=== PATIENT | female | born 1955 | race Caucasian/White ===

== ENCOUNTER → 2018-01-24 07:24 | Outpatient (CLI) | payer BC, SELFPAY ==
--- NOTE | 2018-01-24 07:27 | HPBI_ITS ---
MAMMOGRAPHY - BILATERAL SCREENING REASON FOR EXAM: Female, 62 years old. Routine annual screening examination. PERTINENT HISTORY: Non-contributory. TECHNIQUE: Digital bilateral breast jayde (3D mammographic acquisition) in the CC and MLO projections. 2-D mediolateral oblique (MLO) and craniocaudad (CC) views of both breasts were obtained. CAD: Full Field Digital Mammography with Computer Added Detection was performed. COMPARISON: Comparison is made with prior study dated January 18, 2017 and January 12, 2016. FINDINGS: Breast Composition: There are scattered areas of fibroglandular density. There are no dominant masses or suspicious calcifications. No other significant abnormalities are identified. There has been no significant change since the prior study. HPBI/SCREENING MAMM (CAD), BILAT IMPRESSION: Stable bilateral screening mammogram. Yearly follow-up mammogram recommended. (A) ASSESSMENT CATEGORY: BIRADS Category 1: Negative. A letter regarding these results will be sent to the patient by the facility within 30 days. Approximately 10% of breast cancers are not detected by mammography. A normal mammogram should not delay biopsy of a clinically suspicious abnormality. [id number] Electronically Signed: Shaggy Triana MD at 9:57 EST Tel [phone], Service support ,
== END ==
PROVIDERS: Family Provider Family Medicine; PCP Family Medicine; Visit Provider Family Medicine
DX: Z12.31 Encounter for screening mammogram for malignant neoplasm of breast (principal)
CPT/HCPCS: 77063; 77067

== ENCOUNTER → 2018-10-08 16:17 | Outpatient (CLI) | payer BC, SELFPAY ==
--- NOTE | 2018-10-08 16:21 | RAD_ITS ---
HISTORY: left shoulder pain COMPARISON: None FINDINGS: 4 views. No fracture or acute disease. The left glenohumeral relationship appears normal. Left AC joint appears preserved. No soft tissue calcifications. RAD/Shoulder min 2 Views IMPRESSION: Negative exam. Left shoulder exam appears within normal limits for age. at 0108 Reported and signed by: Moi Harrison MD Electronically Signed: Moi Harrison, at 1:06 EST Tel , Service support ,
== END ==
PROVIDERS: Family Provider Family Medicine; PCP Family Medicine; Referring Provider Family Medicine; Visit Provider Family Medicine
DX: M25.512 Pain in left shoulder (principal)
CPT/HCPCS: 73030

== ENCOUNTER → 2021-03-05 08:01 | Outpatient (CLI) | payer MEDICARE, BC, SELFPAY ==
[2018-02-04 12:24] VITALS: BMI 39.8
[2021-03-05 10:47] LABS: Anion Gap 3 (5-15); BUN 18 mg/dL (7-18); Chloride 104 mmol/L (98-107); Cholesterol 217 mg/dL (200); Creatinine, Serum 0.95 mg/dL (0.55-1.02); EST Glomerular Filtration Rate 63 mL/min (>60); Est Glom Filt Rate - Afr Amer 76 mL/min (>60); Glucose 102 mg/dL (74-106); High Density Lipoprotein 44 mg/dL; Potassium 4.3 mmol/L (3.5-5.1); Sodium Level 136 mmol/L (136-145); Thyroid Stim Hormone (TSH) 0.36 uIU/mL (0.358-3.74); Triglycerides 160 mg/dL; Very Low Density Lipoprotein 32 mg/dL (5-40)
== END ==
PROVIDERS: PCP Family Medicine; Referring Provider Family Medicine; Visit Provider Family Medicine
DX: Z00.00 Encounter for general adult medical examination without abnormal findings (principal); E03.9 Hypothyroidism, unspecified; E55.9 Vitamin D deficiency, unspecified; E66.9 Obesity, unspecified
CPT/HCPCS: 36415; 80048; 80061; 84443

== ENCOUNTER → 2021-03-16 13:44 | Outpatient (CLI) | payer MEDICARE, BC, SELFPAY ==
[2021-03-19 12:38] LABS: HPV Reflexed? NOT INDICATED
== END ==
PROVIDERS: PCP Family Medicine; Visit Provider Registered Nurse
DX: Z01.419 Encounter for gynecological examination (general) (routine) without abnormal findings (principal)
CPT/HCPCS: 88175; G0145

== ENCOUNTER → 2021-04-19 11:59 | Outpatient (CLI) | payer MEDICARE, BC, SELFPAY ==
--- NOTE | 2021-04-19 12:03 | RAD_ITS ---
STUDY: X-RAY - LEFT KNEE REASON FOR EXAM: Left knee pain. TECHNIQUE: 4 view(s) of the knee. COMPARISON: None. FINDINGS: Normal visualized distal femur. Normal visualized proximal tibia and fibula. Normal proximal tibiofibular articulation. There is a small marginal osteophyte of the medial tibial plateau and mild joint space narrowing of the medial femorotibial compartment. Normal lateral femorotibial compartment. There is mild joint space narrowing of the patellofemoral articulation. The soft tissue structures are unremarkable. RAD/Knee 4 or More Views IMPRESSION: Mild arthrosis of the medial femorotibial and patellofemoral compartments. Electronically Signed: Elias Chapa MD at 12:40 EDT Tel , Service support ,
== END ==
PROVIDERS: PCP Family Medicine; Visit Provider Family Medicine
DX: M25.562 Pain in left knee (principal)
CPT/HCPCS: 73564

== ENCOUNTER 2021-08-04 23:52 | Inpatient (IN) | payer MEDICARE, BC, SELFPAY ==
[2021-08-04 23:53] VITALS: BP 186/114; PULSE 72; RESP 18; TEMP 36.7; O2SAT 98; BMI 41.0
[2021-08-04 23:58] VITALS: BP 169/105; PULSE 74; RESP 16; O2SAT 99
[2021-08-05] VITALS (25 sets, daily range): BP systolic 89–169; BP diastolic 75–105; PULSE 69–85; RESP 14–19; TEMP 36.6–36.9; O2SAT 97–100; BMI 40.7
--- NOTE | 2021-08-05 00:02 | EKG12_ITS ---
Test Reason : CP Blood Pressure : / mmHG Vent. Rate : 070 BPM Atrial Rate : 070 BPM P-R Int : 128 ms QRS Dur : 092 ms QT Int : 392 ms P-R-T Axes : 043 -19 -06 degrees QTc Int : 423 ms Normal sinus rhythm ST elevation consider anterolateral injury or acute infarct ACUTE MT / STEMI Abnormal ECG No previous ECGs available Confirmed by MARY SOOD, IRAJ ([id number]), story editor NASIR SINCLAIR ([id number]) on 08/10/2021 10:45:46 AM Referred By: Raul Lee Confirmed By:IRAJ HERNANDEZ MD
--- NOTE | 2021-08-05 00:02 | RAD_ITS ---
STUDY: X-RAY CHEST REASON FOR EXAM: Female, 66 years old. Chest pain TECHNIQUE: Portable, upright, AP chest radiograph COMPARISON: None. FINDINGS: The lungs are clear and expanded. There is no demonstrated pleural abnormality. Normal size heart. Normal mediastinum and tawana. Normal visualized pulmonary arteries. Normal visualized aortic arch and descending thoracic aorta. Normal visualized thoracic spine. Normal visualized ribs, clavicles, and shoulders. There is no demonstrated abnormality of the visualized soft tissue structures of the upper abdomen. RAD/Chest 1 View (Portable) IMPRESSION: No acute abnormal cardiopulmonary finding. Electronically Signed: Kris Grajeda MD at 1:00 EDT Tel , Service support ,
--- NOTE | 2021-08-05 00:04 | EDS_ITS ---
HPI History of Present Illness Chief Complaint: Chest Pain Informant: patient Onset/Context/Timing Onset: Today Activity at onset: sudden Narrative Narrative: Patient is a 66-year-old female with history of hypothyroid presenting with chest pain. Patient states she developed pain on her chest at 1120. She states it the most severe pain she is ever had and describes it as sharp and stabbing. It radiates to her arm and into her jaw. She does not have any associated nausea or shortness of breath. Patient took extra Tylenol but not had any aspirin today. She notes that over the past few days she has been having intermittent episodes of pain in her chest but they resolve after minutes. She denies any known cardiac history. She does have a family history of heart disease. She denies any other complaints at this time. [facility] Medical History (Updated 08/05/21 @ 00:[address] Shamika Baldwin DO) Hay fever Thyroid disease Home Medications fluticasone propionate 50 mcg/actuation nasal spray,suspension INTRANASAL 30 Days #16 02/04/18 [History Last Taken Unknown] levothyroxine 150 mcg tablet PO 90 Days #90 02/04/18 [History Last Taken Unknown] loratadine 10 mg tablet PO 30 Days #30 02/04/18 [History Last Taken Unknown] Allergy/AdvReac Type Severity Reaction Status Date / Time Penicillins Allergy Other Verified 08/04/21 23:58 celica Allergy Mild unknown Uncoded 02/04/18 12:25 Social History Smoking Status: Never smoker alcohol intake: never ROS ROS ED Constitutional Constitutional ED: Denies fatigue or weakness Eyes Eyes: Denies blurry vision ENT ENT ED: Denies rhinorrhea Cardiovascular Cardiovascular: Reports as per HPI and chest pain Respiratory/Chest Respiratory/Chest: Denies dyspnea Gastrointestinal Gastrointestinal: Denies abdominal pain, nausea or vomiting Genitourinary Genitourinary ED: Denies decreased urination or dysuria Musculoskeletal Musculoskeletal: Denies arthralgias, extremity pain or myalgias Integumentary Denies new lesions or rash Neurologic Neurologic: Denies paresthesias or weakness Psychiatric Psychiatric: Denies anxiety or depression Hematologic/Lymphatic Hematologic/Lymphatic: Denies easy bleeding or easy bruising EXAM Physical Exam Const Vital Signs: 08/04/21 23:53 08/04/21 23:56 08/04/21 23:58 Temperature 98.1 F Temperature Source Temporal Pulse Rate 72 Respiratory Rate 18 16 Respiratory Effort Normal Respiratory Pattern Normal Blood Pressure 186/114 H 169/105 H Blood Pressure Mean 138 Pulse Ox 98 Oxygen Delivery Method Room Air Oxygen Flow Rate (L/min) 08/05/21 00:12 08/05/21 00:14 Temperature Temperature Source Pulse Rate 76 Respiratory Rate Respiratory Effort Respiratory Pattern Blood Pressure 169/105 H Blood Pressure Mean Pulse Ox 100 Oxygen Delivery Method Nasal Cannula Oxygen Flow Rate (L/min) 2 HEENT Reports moist mucous membranes normocephalic Mouth ED: Yes moist mucous membranes normal Eyes PERRL and EOMs intact bilaterally General Eye ED: Yes normal appearance of both eyes Pupil: PERRL Neck supple and no JVD Lymph Lymphatic: no lymphadenopathy noted Chest Wall inspection of chest normal and palpation of chest normal Resp normal respiratory effort and normal air movement Cardio regular rate and regular rhythm Peripheral Pulses: pulses 2+ throughout GI normal to inspection, nondistended, normoactive bowel sounds, non-tender and non-distended Back/Spine no CVA tenderness and normal to inspection Extremity normal to inspection and full ROM Neuro oriented x3, moves all extremities and no focal motor deficits Psych mental status grossly normal and thought process normal Skin no rashes or lesions noted and no petechiae MDM MDM MDM Narrative Medical decision making narrative: Patient evaluated for acute onset of chest pain. EKG done upon arrival is consistent with ST elevation MN with ST elevations in leads I, aVL, V2 and V3 with reciprocal depressions in 2, 3 and aVF. STEMI alert is called. Patient is given Brilinta, aspirin, heparin and nitroglycerin. Discussed with STEMI crime scene evidence technician, Dr. Lee, who will evaluate the patient in the Telephone Service Adviser. Lab Data Labs: Laboratory Results - last 24 hr 08/05/21 00:04 WBC 11.4 H RBC 5.08 Hgb 14.5 Hct 43.1 MCV 84.8 MCH 28.5 MCHC 33.6 RDW Std Deviation 39.5 RDW Coeff of Khoi 12.8 Plt Count 316 MPV 9.1 Immature Gran % (Auto) 0.400 Neut % (Auto) 53.5 Lymph % (Auto) 35.7 [place] % (Auto) 7.7 Eos % (Auto) 2.2 Baso % (Auto) 0.5 Absolute Neuts (auto) 6.1 Absolute Lymphs (auto) 4.06 Nucleated RBC % 0 Critical Care Time Critical care time (excluding procedures): 30-74 minutes (36), Including time spent: (Frequent reevaluation. Blood pressure monitoring. Discussion with cardiology and arranging admission to the Telephone Service Adviser), Discussing w/Patient &/or Family/Laborer [employer], Discussing w/Consultants and Arranging Admission or Transfer Discharge Plan Dx/Rx/DC Orders Clinical Impression: ST elevation (STEMI) myocardial infarction, Hypertension, Chest pain Disposition Disposition: Acute Care Hospital [facility]
[2021-08-05] MEDS: TICAGRELOR 90 MG TABLET 180 MG PO (00:06)
[2021-08-05] MEDS: Aspirin 81 MG TAB.CHEW 324 MG PO (00:06)
--- NOTE | 2021-08-05 00:06 | ED.RN ---
NO OLD EKGS
[2021-08-05 00:09] LABS: Absolute Lymphocyte Count 4.06 X10^3/uL (0.83-4.51); Absolute Neutrophil Count 6.1 X10^3/uL (2.0-7.7); Basophil# 0.06 X10^3/uL; Basophil% 0.5 % (0-1); Eosinophil# 0.25 X10^3/uL; Eosinophils% 2.2 % (0-5); Hematocrit 43.1 % (37-47); Hemoglobin 14.5 g/dL (12.0-15.0); Lymphocyte # 4.06 X10^3/ul (0.83-4.51); Lymphocyte % 35.7 % (19-41); Mean Corp Hgb Conc 33.6 g/dL (32-36); Mean Corpuscular Hgb 28.5 pg (27.0-32.0); Mean Corpuscular Volume 84.8 fL (81-99); Mean Platelet Vol. 9.1 fl (6.2-12.0); Monocyte# 0.88 X10^3/uL; Monocyte% 7.7 % (0-10); NRBC Flagged by Analyzer 0 % (0-5); Neutrophil # 6.08 X10^3/uL (2.7-7.7); Neutrophil % 53.5 % (47-70); Platelet Count 316 K/mm3 (150-450); RBC Distribution Width CV 12.8 % (11.6-14.6); RBC Distribution Width SD 39.5 fl (35.1-43.9); Red Blood Count 5.08 M/mm3 (4.2-5.4); White Blood Count 11.4 K/mm3 (4.4-11.0)
[2021-08-05] MEDS: 0.9% Normal Saline 1,000 ML 150 ML IV ×3 (00:11→06:16)
[2021-08-05] MEDS: Nitroglycerin SL (ED/IMG/CATH) 0.4 MG TABLET SL ×2 (00:14→00:25)
[2021-08-05] MEDS: Heparin Injection (Vial) 5,000 UNIT/ML VIAL 4000 UNIT IV (00:14)
[2021-08-05 00:29] LABS: Anion Gap 5 (5-15); BUN 18 mg/dL (7-18); BUN/Creat Ratio 18.1 RATIO (10-20); Chloride 107 mmol/L (98-107); Creatinine, Serum 0.99 mg/dL (0.55-1.02); EST Glomerular Filtration Rate 60 mL/min (>60); Est Glom Filt Rate - Afr Amer 72 mL/min (>60); Estimated Creatinine Clearance 48.92 ml/min; Glucose 137 mg/dL (74-106); Potassium 4.1 mmol/L (3.5-5.1); Sodium Level 139 mmol/L (136-145); Troponin-I HS 106 pg/mL (3.0-54.0)
[2021-08-05 00:29] LABS: Prothrombin Time (Protime)PT. 12.7 SECONDS (11.7-14.9)
[2021-08-05 00:30] LABS: Partial Thromboplast Time 29.8 Seconds (24.1-36.2)
--- NOTE | 2021-08-05 01:31 | EKG12_ITS ---
Test Reason : POST CATH Blood Pressure : / mmHG Vent. Rate : 080 BPM Atrial Rate : 080 BPM P-R Int : 128 ms QRS Dur : 088 ms QT Int : 408 ms P-R-T Axes : 048 -29 041 degrees QTc Int : 470 ms Normal sinus rhythm Septal infarct , age undetermined Abnormal ECG Confirmed by SVETLANA SOOD, FLOR ([id number]), social media editor NASIR SINCLAIR ([id number]) on 08/09/2021 1:13:15 PM Referred By: Raul Lee Confirmed By:FLOR MOTA MD
--- NOTE | 2021-08-05 01:44 | PCIREPORT_ITS ---
PCI Cardiac Cath Report PCI Report: Procedure performed; 1. Successful primary stenting of mid LAD/culprit lesion for STEMI/anterior with thrombus using drug-eluting stent/Orsiro 3 x 22 mm Initial PAPITO II flow postprocedure achieved PAPITO-3 flow in the LAD initially stenosis is 70% with thrombus in the mid LAD post procedure 0% Preprocedure diagnosis; 66-year-old patient who was brought into the hospital at [facility] ER complaining of retrosternal chest pain with significant change in the EKG ST elevation noted in the anterior with reciprocal change noted in the inferior leads The symptoms have been ongoing for at least 24-hour on and off retrosternal chest pain with radiation to the jaw and to the left arm Patient known to have history of hypothyroidism and noted in the ER to have high blood pressure but she denied any history of diabetes no history of hypertension no history of prior coronary artery disease. at bedside when I came to evaluate in the ER with ER physician and the medical team. Patient was given in the ER heparin 4000, Brilinta 180 mg and regular aspirin 2 accesses were obtained in the left and the right upper extremity and patient was a started nitroglycerin 5 mcg IV and her symptoms improved when she came in she had severe retrosternal chest pain described as 10 out of 10 with nitroglycerin infusion her symptoms improved to around 5-6 still having symptoms of chest pain. Consent; Risk and benefit of the procedure explained detail to patient she elected to proceed informed consent obtained. Diagnostic catheter and interventional equipment used 1. 5 Lebanese JL 4 2. 5 Lebanese pigtail catheter 3. 6 Lebanese JR 4 guide catheter 0.014 run-through extra floppy 180 cm straight wire Drug-eluting stent/Orsiro 3 x 22 mm placed in the mid LAD. Procedure in detail; Patient was brought to the emergency to the Conference Services Director we will proceed with the 6 Lebanese sheath/Terumo placed in the right radial artery, a cocktail of heparin, nitroglycerin and verapamil was given through the sheath Then we proceed with the guide catheter 6 Lebanese JR4 advanced ascending aorta cannulated left main, then will proceed with guidewire run-through wire across the lesion in his LAD then will proceed with primary stenting using 3 x 22 mm drug-eluting stent nitroglycerin was given intracoronary and significant improvement in the hemodynamic with resolution of ST elevation, idioventricular rhythm was noted secondary to reperfusion arrhythmia symptoms of chest pain resolved and patient is stable hemodynamically then will proceed with 5 Lebanese JR4 diagnostic catheter cannulated the right coronary artery is followed by a pigtail catheter placed in the mid ventricle and the ventriculogram obtained a 30 degree LYLE projection. Findings; Hemodynamics; Moderate LV systolic dysfunction ejection fraction in the range of around 40% with anteroapical hypokinesia There is no systolic gradient across aortic valve. There is no mitral regurgitation noted. Coronary angiography findings 1. Left main coronary artery Short bifurcating into LAD and the left circumflex, angiographically the left main is normal 2. Left anterior descending is a large vessel with a ruptured plaque and thrombus noted in the mid LAD at the site of the diagonal with a PAPITO II flow in the LAD, following PCI and stenting of mid LAD PAPITO-3 flow was achieved LAD is a large vessel reach all the way to the apex had to small diagonal branches and abundant septal branches 3. The left circumflex is large vessel there is obtuse marginals normal and the circumflex in the AV groove is within normal 4. Right coronary artery large dominant angiographically there are luminal irregularity in the proximal mid RCA the distal RCA had nonobstructive atherosclerosis of around 20% Conclusion; This patient presented with STEMI/ST elevation noted in the anterior leads with reciprocal change in the inferior the culprit being the mid LAD with a ruptured plaque and thrombus with successful PCI as explained and placement of drug- eluting stent/primary stenting with excellent result Patient has reduced LV systolic dysfunction her presentation is more than 24- hour as she had the symptoms more than 24-hour and has anteroapical hypokinesia with ejection fraction around 40%. We will evaluate by echocardiogram in the morning. Recommendation; 1. Patient is started on Integrilin was given a total of 6000 IU, of heparin with an ACT level of 208 additional 2000 units of heparin was given 2. Integrilin bolus followed by Integrilin infusion for 18-hour 3. Patient was given 180 mg of Brilinta and a regular aspirin in the Conference Services Director she will continue on DAPT 90 mg twice daily of Brilinta in addition to low-dose aspirin 81 mg 4. Patient will be on high-dose statin atorvastatin 40 mg daily 5. TESFAYE inhibitor in addition to beta-wang carvedilol 6. We will start on phase 1 cardiac rehab program 7. Patient will be admitted to the intensive care unit and will continue to have a series of cardiac biomarkers. Patient tolerated the procedure well with no complication in the Conference Services Director. Raul Lee MD,FAC,[facility]
[2021-08-05 02:20] LABS: Absolute Lymphocyte Count 2.33 X10^3/uL (0.83-4.51); Absolute Neutrophil Count 6.8 X10^3/uL (2.0-7.7); Basophil# 0.03 X10^3/uL; Basophil% 0.3 % (0-1); Eosinophil# 0.13 X10^3/uL; Eosinophils% 1.3 % (0-5); Hematocrit 41.8 % (37-47); Hemoglobin 13.7 g/dL (12.0-15.0); Lymphocyte # 2.33 X10^3/ul (0.83-4.51); Lymphocyte % 23.6 % (19-41); Mean Corp Hgb Conc 32.8 g/dL (32-36); Mean Corpuscular Hgb 28.4 pg (27.0-32.0); Mean Corpuscular Volume 86.7 fL (81-99); Mean Platelet Vol. 9.4 fl (6.2-12.0); Monocyte# 0.52 X10^3/uL; Monocyte% 5.3 % (0-10); NRBC Flagged by Analyzer 0 % (0-5); Platelet Count 274 K/mm3 (150-450); RBC Distribution Width CV 12.9 % (11.6-14.6); RBC Distribution Width SD 40.9 fl (35.1-43.9); Red Blood Count 4.82 M/mm3 (4.2-5.4); White Blood Count 9.9 K/mm3 (4.4-11.0)
[2021-08-05 03:02] LABS: Anion Gap 3 (5-15); BUN 17 mg/dL (7-18); BUN/Creat Ratio 17.4 RATIO (10-20); Calcium,Total 8.6 mg/dL (8.5-10.1); Chloride 105 mmol/L (98-107); Creatinine, Serum 0.98 mg/dL (0.55-1.02); EST Glomerular Filtration Rate 61 mL/min (>60); Est Glom Filt Rate - Afr Amer 74 mL/min (>60); Estimated Creatinine Clearance 49.42 ml/min; Glucose 139 mg/dL (74-106); Potassium 4.2 mmol/L (3.5-5.1); Sodium Level 136 mmol/L (136-145); Troponin-I HS 4069 pg/mL (3.0-54.0)
--- NOTE | 2021-08-05 03:22 | HP.PCM.HOS_ITS ---
HPI - General General Date of Admission: 08/05/21 HPI Narrative THERESA DICKENS, is a 66 F who presents to the hospital with intermittent chest pain for the last 24 hours. She states that the pain was sharp and stabbing and went to her left shoulder and upper jaw a little bit. She never had a pain like this before and did not have any shortness of breath or lightheadedness with it. She presented to the hospital was found to have a STEMI on EKG with a troponin of over 4000. She was taken to the Sign Language Interpreter where a drug-eluting stent was placed in the mid LAD. She states that she is now chest pain-free. [facility], [facility] Medical History (Updated 08/05/21 @ 02:12 by Alex Lockwood) Celiac disease (~2012) Hay fever Thyroid disease Home Medications fluticasone propionate 50 mcg/actuation nasal spray,suspension INTRANASAL 30 Days #16 02/04/18 [History Last Taken Unknown] levothyroxine 150 mcg tablet PO 90 Days #90 02/04/18 [History Last Taken Unknown] loratadine 10 mg tablet PO 30 Days #30 02/04/18 [History Last Taken Unknown] Allergy/AdvReac Type Severity Reaction Status Date / Time Penicillins Allergy Other Verified 08/04/21 23:58 celica Allergy Mild unknown Uncoded 02/04/18 12:25 Family History (Updated 08/05/21 @ 03:[address] Nate Joy MD) Other Heart disease Surgical History (Updated 08/05/21 @ 03:[address] Nate Joy MD) Status post tubal ligation Social History Smoking Status: Former smoker alcohol intake: never ROS Constitutional Constitutional: Denies chills, fatigue, fever(s) or malaise Eyes Eyes: Denies blurry vision ENT HEENT: Denies headache(s) or nasal discharge Cardiovascular Cardiovascular: Reports chest pain; Denies dyspnea on exertion or syncope Respiratory/Chest Respiratory/Chest: Denies cough, shortness of breath at rest or shortness of breath with exertion Gastrointestinal Gastrointestinal: Denies constipation, diarrhea, nausea or vomiting Genitourinary Genitourinary: Denies dysuria Neurologic Neurologic: Denies focal weakness, numbness or tremor(s) Psychiatric Psychiatric: Denies anxiety or depression Vital Signs Vital Signs Vital Signs: 08/04/21 23:53 08/04/21 23:56 08/04/21 23:58 Temperature 98.1 F Temperature Source Temporal Pulse Rate 72 Respiratory Rate 18 16 Respiratory Effort Normal Respiratory Pattern Normal Blood Pressure 186/114 H 169/105 H Blood Pressure Mean 138 Blood Pressure Source Blood Pressure Position Blood Pressure Location Pulse Ox 98 Oxygen Delivery Method Room Air Oxygen Flow Rate (L/min) 08/05/21 00:12 08/05/21 00:14 08/05/21 00:25 Temperature Temperature Source Pulse Rate 76 76 Respiratory Rate Respiratory Effort Respiratory Pattern Blood Pressure 169/105 H 149/96 H Blood Pressure Mean Blood Pressure Source Blood Pressure Position Blood Pressure Location Pulse Ox 100 Oxygen Delivery Method Nasal Cannula Oxygen Flow Rate (L/min) 2 08/05/21 00:29 08/05/21 00:32 08/05/21 00:34 Temperature 98.1 F Temperature Source Oral Pulse Rate 85 83 Respiratory Rate 16 15 Respiratory Effort Respiratory Pattern Blood Pressure 149/96 H 89/75 L 138/87 H Blood Pressure Mean 113 79 104 Blood Pressure Source Blood Pressure Position Blood Pressure Location Pulse Ox 100 97 Oxygen Delivery Method Nasal Cannula Nasal Cannula Oxygen Flow Rate (L/min) 2 2 08/05/21 01:58 08/05/21 03:09 Temperature Temperature Source Pulse Rate 74 Respiratory Rate 18 Respiratory Effort Respiratory Pattern Blood Pressure 106/85 H Blood Pressure Mean 92 Blood Pressure Source Monitor Blood Pressure Position Semi-Fowlers Blood Pressure Location Left Arm Pulse Ox 97 Oxygen Delivery Method Nasal Cannula Oxygen Flow Rate (L/min) 2 Weight Weight: 237 lb 3.478 oz Body Mass Index (BMI) 40.7 Physical Exam Const alert, oriented x3 and no apparent distress General Appearance: cooperative HEENT normocephalic and moist oral mucous membranes Eyes PERRL, EOMs intact bilaterally and conjunctivae normal Neck supple and no JVD Resp normal respiratory effort, no retractions, no use of accessory muscles and clear to auscultation bilaterally Auscultation: Negative for crackles, rales, rhonchi or wheezes Cardio regular rate, regular rhythm, S1 normal heart sound, S2 normal heart sound and no murmurs GI soft to palpation, non-tender and non-distended; Negative for hepatosplenomegaly Extremity no clubbing, cyanosis or edema Skin no rashes or lesions noted Neuro no focal motor deficits and no sensory deficits noted Psych affect normal Appearance: appropriate Results Lab / Micro Data Result Diagrams: 08/05/21 02:10 08/05/21 02:10 Labs: Laboratory Results - last 24 hr 08/05/21 00:04: WBC 11.4 H, RBC 5.08, Hgb 14.5, Hct 43.1, MCV 84.8, MCH 28.5, MCHC 33.6, RDW Std Deviation 39.5, RDW Coeff of Khoi 12.8, Plt Count 316, MPV 9.1, Immature Gran % (Auto) 0.400, Neut % (Auto) 53.5, Lymph % (Auto) 35.7, [place] % (Auto) 7.7, Eos % (Auto) 2.2, Baso % (Auto) 0.5, Absolute Neuts (auto) 6.1, Absolute Lymphs (auto) 4.06, Nucleated RBC % 0 08/05/21 00:04: Sodium 139, Potassium 4.1, Chloride 107, Carbon Dioxide 27.0, Anion Gap 5, BUN 18, Creatinine 0.99, Estim Creat Clear Calc 48.92, Est GFR (MDRD) Af Amer 72, Est GFR (MDRD) Non-Af 60, BUN/Creatinine Ratio 18.1, Glucose 137 H, Calcium 9.0, Troponin I High Sens 106 H 08/05/21 00:15: PT 12.7, INR 1.0, APTT 29.8 08/05/21 02:10: WBC 9.9, RBC 4.82, Hgb 13.7, Hct 41.8, MCV 86.7, MCH 28.4, MCHC 32.8, RDW Std Deviation 40.9, RDW Coeff of Khoi 12.9, Plt Count 274, MPV 9.4, Immature Gran % (Auto) 0.500, Neut % (Auto) 69.0, Lymph % (Auto) 23.6, [place] % (Auto) 5.3, Eos % (Auto) 1.3, Baso % (Auto) 0.3, Absolute Neuts (auto) 6.8, Absolute Lymphs (auto) 2.33, Nucleated RBC % 0 08/05/21 02:10: Sodium 136, Potassium 4.2, Chloride 105, Carbon Dioxide 28.0, Anion Gap 3 L, BUN 17, Creatinine 0.98, Estim Creat Clear Calc 49.42, Est GFR (MDRD) Af Amer 74, Est GFR (MDRD) Non-Af 61, BUN/Creatinine Ratio 17.4, Glucose 139 H, Calcium 8.6, Troponin I High Sens 4069 H* Micro: Microbiology 08/05/21 00:17 Interface Orders SARS-CoV-2 Antigen (Rapid) - Final Radiology Impression Chest X-Ray 08/05/21 00:02 IMPRESSION: No acute abnormal cardiopulmonary finding. Electronically Signed: Kris Grajeda MD at 1:00 EDT Tel , Service support , Assessment & Plan Assessment/Plan (1) ST elevation (STEMI) myocardial infarction: PLAN: 1. STEMI status post stent/HTN -She received stent to the mid LAD, discussed with her that she cannot be off of antiplatelets -Continue with aspirin and Brilinta -We will continue to monitor her blood pressure, just started on Coreg -Continue with Lipitor -Continue with lisinopril 2. Hypothyroidism -Stable -Can resume Synthroid once verified DVT: Ambulation Charges/Coding Visit Charges Inpatient E&M: 82273 Init Hosp L3
[2021-08-05] MEDS: Atorvastatin Calcium 40 MG Tablet PO ×2 (05:16→22:09)
--- NOTE | 2021-08-05 05:52 | ECHOD_ITS ---
Reason For Study: S/P SC Procedure This was a 2D Doppler, Color Flow transthoracic echocardiogram. Exam performed portable in ICU/CCU. Left Ventricle Normal left ventricle. The estimated ejection fraction is EF 45-50 %. Right Ventricle Normal right ventricle. Normal systolic function. Atria Normal left atrium. Normal right atrium. Mitral Valve The mitral valve is structurally normal. No prolapse or stenosis seen. No mitral valve insufficiency. Tricuspid Valve Normal tricuspid valve. No tricuspid valve insufficiency. Aortic Valve Normal aortic valve. Pulmonic Valve The pulmonic valve is not well visualized. Great Vessels Normal aortic root. Pericardium/Pleural No pericardial effusion. MMode/2D Measurements & Calculations LVIDd: 4.8 cm IVSd: 1.0 cm Ao root diam: 3.9 cm LVIDs: 3.2 cm LVPWd: 1.00 cm FS: 32.9 % LAV(MOD-bp): 43.7 ml LVAd ap4: 33.2 cm2 LVAd ap2: 27.2 cm2 LAV(MOD-bp) Indexed: 20.8 ml/m2 LVLd ap4: 8.5 cm LVLd ap2: 7.8 cm LAV(MOD-sp2): 40.5 ml EDV(MOD-sp4): 105.5 ml EDV(MOD-sp2): 78.0 ml LAV(MOD-sp4): 47.2 ml EDV(sp4-el): 109.7 ml EDV(sp2-el): 81.1 ml LVAs ap4: 19.5 cm2 LVAs ap2: 17.1 cm2 LVLs ap4: 6.8 cm LVLs ap2: 6.8 cm ESV(MOD-sp4): 45.9 ml ESV(MOD-sp2): 35.3 ml ESV(sp4-el): 47.6 ml ESV(sp2-el): 36.1 ml EF(MOD-sp4): 56.5 % EF(MOD-sp2): 54.7 % EF(sp4-el): 56.6 % SV(MOD-sp4): 59.6 ml SV(MOD-sp2): 42.6 ml SV(sp4-el): 62.1 ml LA dimension(2D): 3.9 cm LA A4 area: 16.8 cm2 RA A4 area: 13.0 cm2 Time Measurements MV dec time: 0.24 sec Doppler Measurements & Calculations MV E max fantasma: 79.0 cm/sec Lat Peak E' Fantasma: 4.8 cm/sec Med Peak E' Fantasma: 4.8 cm/sec MV A max fantasma: 101.2 cm/sec E/E' lat: 16.3 E/E' med: 16.3 MV E/A: 0.78 Ao V2 max: 153.8 cm/sec LV V1 max: 105.2 cm/sec PA V2 max: 113.5 cm/sec Ao max P.5 mmHg LV V1 max P.4 mmHg TR max fantasma: 261.8 cm/sec TR max P.4 mmHg ECHO/Echo Complete Interpretation Summary The estimated ejection fraction is EF 45-50 %. Distal septal and Apical Hypokinesia Grade # I Diastolic Dysfunction No prior echo to compare Ordering Physician: Raul Lee Referring Physician: FLOR CHAVIRA Performed By: Mare Hernandez, RDCS, RVT
--- NOTE | 2021-08-05 07:30 | CRPHASE1_ITS ---
Patient Communication PHII Cardiac Rehab Discussed with Patient:: Yes Guide to Cardiac Rehab Given to Patient:: Yes Cardiac Rehab Facility Choice List Given to Patient:: Yes Choice Program [facility] CR PHII:: Communication Given to CR Choice Program Other:: Communication Given to CR Train Clerk:: Raul Lee Sessions:: 36 sessions - 3 days/wk, 12 weeks Cardiac Rehabilitation Info Cardiac Rehabilitation Program Information: Cardiac Rehabilitation is important for patients like you who are recovering from a heart problem. Cardiac rehabilitation programs are recognized as integral to the continued care of the patient with coronary heart disease. The cardiac rehabilitation program is designed to optimize a patient's physical, psychological, and social functioning. Health career counselor work in cardiac rehabilitation programs and assist you with getting the treatments you need to get stronger and healthier - like exercise, healthy eating habits, and medications. Cardiac rehabilitation has been show to help people with heart problems live longer and have better life enjoyment than people who do not go to cardiac rehabilitation. Please contact the Cardiac Rehabilitation Program at [facility] at in two weeks if you have not heard from them.
--- NOTE | 2021-08-05 07:34 | CRPH1.INSTRU ---
General Education CAD and cardiac anatomy and function:: Patient communicates acknowledgment Explanation of diagnoses and procedures:: Patient communicates acknowledgment Sign/Symptoms of CT:: Patient communicates acknowledgment Antiplatelet therapy: Patient communicates acknowledgment Smoking Recommendations Include:: Previous smoker; encourage continued cessation Nicotine/Smoking Response Code:: Patient communicates acknowledgment Dyslipidemia Patient Dyslipidemia Risk Factors Are:: Total Cholesterol, Triglycerides, HDL, LDL Recommendations Include:: Lipid profile provided, Reviewed NCEP/ATP guidelines, Therapeutic Lifestyle Change dietary guidelines Dyslipidemia Response Code:: Patient communicates acknowledgment Overweight/Obesity Patient Overweight/Obesity Risk Factors Are:: Obesity - > or = 30 Recommendations Include:: Weight loss of 5-10%, Reduced calorie diet, Exercise 5-7 times/week Overweight/Obesity:: Patient communicates acknowledgment Hypertension Recommendations Include:: Maintain BP <130/85, DASH dietary guidelines, Decrease/maintain normal body weight, Moderation of ETOH Hypertension:: Patient communicates acknowledgment Diabetes Patient Diabetes Risk Factors Are:: No documented hx of diabetes Metabolic Syndrome Patient Metabolic Syndrome Risk Factors Are [3 of 5]:: Fasting blood sugar > 100 mg/dL, Waist circumference > 35 [female] or 40 [male], High triglyceride >150, Hypertension Recommendations Include:: Reinforce compliance to risk factor modifications, Encouraged follow-up with Primary Care Physician Metabolic Syndrome Response Code:: Patient communicates acknowledgment Sedentary Patient Sedentary Risk Factors Are:: Lack of regular exercise Recommendations Include:: Aerobic exercise 5-7 times/week for 20-30 minutes continuously, Benefits of regular exercise, Monitored Outpatient Cardiac Rehab Sedentary Response Code:: Patient communicates acknowledgment Stress Patient Stress Risk Factors Are:: Patient denies stress as a risk factor
--- NOTE | 2021-08-05 09:35 | CASEMGMT ---
RN CM Face to Face with patient for initial transition planning/care coordination assessment. RN CM introduced self and role at [facility]. Patient lying in bed, alert and oriented. Patient willing to participate in assessment and is able to answer all questions appropriately. Care providers, pharmacy, and demographics verified. Patient wishes to discharge home, denies need for home health at this time. Patient states she has no further needs or concerns at this time. CM to follow for discharge planning needs that may arise. PCP: [facility] Specialists: RENAE Lombardi Preferred Pharmacy: [facility] retail at discharge Insurance: [place] BARBER Prescription Benefit: yes Living Will/HPOA: yes, Raffi Ramos LNOK: Living Arrangements: Patient lives with in a single story home with 2 steps and railing to enter the home. Patient states she is independent at home. Transportation: self/ DME/HHC: Patient states she has shower chair, raised toilet, and grab bars at home. Patient denies previous HHC. Disposition Plan: Patient to discharge home with family support and follow-up plans in place. Nataliia CHILDS, RN, CM
[2021-08-05] MEDS: TICAGRELOR 90 MG TABLET PO ×2 (09:52→22:23)
[2021-08-05] MEDS: Loratadine 10 MG Tablet PO (09:52)
[2021-08-05] MEDS: Fluticasone 0.05% 1 SPRAY NASAL.SRY NASAL (09:52)
[2021-08-05] MEDS: Carvedilol 3.125 MG TABLET PO ×2 (09:52→22:23)
[2021-08-05] MEDS: Lisinopril 5 MG Tablet PO (09:53)
--- NOTE | 2021-08-05 10:52 | PN.HOSP_ITS ---
Hospitalist Note Mrs. Ramos is a 66-year-old female who presented to the emergency department early this morning with chest pain. She evidently developed chest pain at approximately 11:20 PM and reported that it was with the most severe pain she had ever had and described as sharp and stabbing. She reported that it radiated to her arm and into her jaw. She had no associated nausea or shortness of breath. She did indicate that over the past several days she has been having some intermittent pain in her chest but it resolved after a few minutes. Upon arrival to the emergency department an EKG was performed and was consistent with an ST elevation CT with ST elevations in lead I, aVL, V2 and V3 with reciprocal depressions in lead II, III and aVF. STEMI alert was called and the patient was given Brilinta, aspirin, heparin and nitroglycerin. The patient was taken to the catheter lab where a mid LAD lesion was found and stented with a drug- eluting stent. This morning she was resting comfortably in her bed and denied having any current pain. She states that while lying down she had little pain but when she sat up it was resolved. She is currently on aspirin, atorvastatin, carvedilol, lisinopril, and Brilinta. I will check a hemoglobin A1c in the morning as she did have an elevated fasting blood glucose level this morning. If she remains stable I do anticipate discharge tomorrow. Diagnoses: STEMI Hyperglycemia Hyperlipidemia Hypertension Hypothyroidism Seasonal allergies
--- NOTE | 2021-08-05 12:13 | CHAPLAIN ---
Type of Pastoral Visit _x__ Initial Visit ___ Follow-up Visit ___ On-call Visit ___ General Patient Visit ___ Spiritual Assessment ___ Family Conference ___ Bereavement ___ Rapid Response ___ Code Blue ___ Other (describe below) Pastoral Care Referral From _x__ Patient ___ Family ___ Nurse ___ Physician ___ Moving Worker ___ Medicaid Analyst ___ Other (describe below) Sacrament/Intervention _x__ Active listening ___ Anointing ___ Restorationist ___ Bereavement ___ Communion ___ [place] exploration ___ ___ Life review _x__ Prayer ___ Reconciliation ___ Sacrament of Sick ___ Supportive presence ___ Wedding ___ Other (describe below) Pastoral Comments patient is pleasant and expresses great appreciation for her care at hospital; pt speaks with positive attitude about future; patient welcomes the support of presence and prayer
--- NOTE | 2021-08-05 12:27 | PCM.CONS.C ---
Documented by User: SENA Sauceda 08/05/21 12:58 Assessment & Plan Assessment/Plan (1) ST elevation (STEMI) myocardial infarction: (2) Hypertension: (3) Decreased left ventricular systolic function: PLAN: Pt urgently had her LAD stented. She was started on Brilinita, ASA, Coreg, lisinopril and atrovastatin She will be referred to cardiac rehab she does have a decreased EF, will obtain echo today. She will continue with her Coreg and lisinopril. Will continue to monitor this on a Op basis. her lipids were not ideal, she will be started on Atorvastatin. HPI Consult Data Date of Consult: 08/05/21 HPI Narrative HPI Narrative: THERESA DICKENS, is a 66 F who presented to [facility] ER with a STEMI. Patient noted that her chest discomfort started at approximately 11:30 PM. She had severe sharp stabbing pain that radiated to her arm and into her jaw. She did not have any associated nausea or shortness of breath. Because this was the worst discomfort she has felt she decided to drive to the emergency room. Patient does note that she had symptoms on and off like this all day except this was the worst. Upon presentation she was noted to have an ST elevation myocardial infarction with ST elevation in leads I, aVL, V2 and V3 with reciprocal depressions in 2 3 and aVF patient was started on Brilinta, aspirin, heparin and glycerin. Patient urgently went to the Road Grader Operator. Heart catheterization demonstrated moderate LV systolic dysfunction with an ejection fraction of 40% with anteroapical hypokinesia, left main short bifurcating into the LAD and around to the circumflex angiographically normal. LAD is a large vessel with ruptured plaque and thrombus noted in the mid LAD at the site of the diagonal. PCI and stenting of the mid LAD was done. Patient was noted to have nonobstructive disease of the RCA. She does have a history of hypothyroid and celiac disease. [facility] Medical History Celiac disease (~2012) Hay fever Thyroid disease Home Medications fluticasone propionate 50 mcg/actuation nasal spray,suspension INTRANASAL 30 Days #16 02/04/18 [History Last Taken Unknown] levothyroxine 150 mcg tablet PO 90 Days #90 02/04/18 [History Last Taken Unknown] loratadine 10 mg tablet PO 30 Days #30 02/04/18 [History Last Taken Unknown] Allergy/AdvReac Type Severity Reaction Status Date / Time Penicillins Allergy Other Verified 08/04/21 23:58 celica Allergy Mild unknown Uncoded 02/04/18 12:25 Family History Other Heart disease Surgical History History of coronary artery stent placement (08/05/21) Status post tubal ligation Social History Smoking Status: Former smoker alcohol intake: never ROS Constitutional Constitutional: Reports systems reviewed and no addt'l complaints, except as documented Eyes Eyes: Reports systems reviewed and no addt'l complaints, except as documented ENT HEENT: Reports systems reviewed and no addt'l complaints, except as documented Cardiovascular Cardiovascular: Reports systems reviewed and no addt'l complaints, except as documented Respiratory/Chest Respiratory/Chest: Reports systems reviewed and no addt'l complaints, except as documented Gastrointestinal Gastrointestinal: Reports systems reviewed and no addt'l complaints, except as documented Musculoskeletal Musculoskeletal: Reports myalgias Neurologic Neurologic: Reports systems reviewed and no addt'l complaints, except as documented Physical Exam Const alert, oriented x3, no apparent distress, average body habitus, no limitations, healthy appearing and well nourished HEENT normocephalic, head/scalp atraumatic, hearing grossly normal bilaterally, moist oral mucous membranes and dentition normal Eyes PERRL, EOMs intact bilaterally, conjunctivae normal and no scleral icterus Neck full ROM, nuchal rigidity, no lymphadenopathy, supple and no JVD Chest inspection of chest normal Resp normal respiratory effort, normal air movement, no retractions, no use of accessory muscles and clear to auscultation bilaterally Cardio regular rate, regular rhythm, S1 normal heart sound, S2 normal heart sound, no murmurs, no rub, no gallops, no clicks, no JVD and peripheral pulses 2+ throughout GI normal to inspection, nondistended, normoactive bowel sounds, soft to palpation, non-tender and non-distended Extremity normal to inspection, normal capillary refill, no joint enlargement, no clubbing, cyanosis or edema and no pedal edema Neuro oriented x3, CN's II-XII intact bilaterally and moves all extremities Charges/Coding Visit Charges Office Visits / Consults: 18233 IP Consult L5 Objective Data Vital Signs: Vital Signs Temp Pulse Resp BP Pulse Ox 98.4 F 78 18 146/89 H 100 08/05/21 08:00 08/05/21 11:49 08/05/21 11:49 08/05/21 11:49 08/05/21 11:49 Oxygen Flow Rate (L/min) 2 Oxygen Delivery Method Room Air Weight: 237 lb 3.478 oz Body Mass Index (BMI) 40.7 Intake & Output: Intake and Output for Last 24 Hours 08/03/21 08/04/21 08/05/21 23:59 23:59 23:59 Intake Total 2388.31 / 2388.31 Output Total 2102 / 2102 Balance 286.31 / 286.31 Lab / Micro Data Result Diagrams: 08/05/21 02:10 08/05/21 02:10 Labs: Laboratory Results - last 24 hr 08/05/21 00:04: WBC 11.4 H, RBC 5.08, Hgb 14.5, Hct 43.1, MCV 84.8, MCH 28.5, MCHC 33.6, RDW Std Deviation 39.5, RDW Coeff of Khoi 12.8, Plt Count 316, MPV 9.1, Immature Gran % (Auto) 0.400, Neut % (Auto) 53.5, Lymph % (Auto) 35.7, Taliaferro % (Auto) 7.7, Eos % (Auto) 2.2, Baso % (Auto) 0.5, Absolute Neuts (auto) 6.1, Absolute Lymphs (auto) 4.06, Nucleated RBC % 0 08/05/21 00:04: Sodium 139, Potassium 4.1, Chloride 107, Carbon Dioxide 27.0, Anion Gap 5, BUN 18, Creatinine 0.99, Estim Creat Clear Calc 48.92, Est GFR (MDRD) Af Amer 72, Est GFR (MDRD) Non-Af 60, BUN/Creatinine Ratio 18.1, Glucose 137 H, Calcium 9.0, Troponin I High Sens 106 H 08/05/21 00:15: PT 12.7, INR 1.0, APTT 29.8 08/05/21 02:10: WBC 9.9, RBC 4.82, Hgb 13.7, Hct 41.8, MCV 86.7, MCH 28.4, MCHC 32.8, RDW Std Deviation 40.9, RDW Coeff of Khoi 12.9, Plt Count 274, MPV 9.4, Immature Gran % (Auto) 0.500, Neut % (Auto) 69.0, Lymph % (Auto) 23.6, Taliaferro % (Auto) 5.3, Eos % (Auto) 1.3, Baso % (Auto) 0.3, Absolute Neuts (auto) 6.8, Absolute Lymphs (auto) 2.33, Nucleated RBC % 0 08/05/21 02:10: Sodium 136, Potassium 4.2, Chloride 105, Carbon Dioxide 28.0, Anion Gap 3 L, BUN 17, Creatinine 0.98, Estim Creat Clear Calc 49.42, Est GFR (MDRD) Af Amer 74, Est GFR (MDRD) Non-Af 61, BUN/Creatinine Ratio 17.4, Glucose 139 H, Calcium 8.6, Troponin I High Sens 4069 H* 08/05/21 02:10: Sodium Cancelled, Potassium Cancelled, Chloride Cancelled, Carbon Dioxide Cancelled, Anion Gap Cancelled, BUN Cancelled, Creatinine Cancelled, Estim Creat Clear Calc Cancelled, Est GFR (MDRD) Af Amer Cancelled, Est GFR (MDRD) Non-Af Cancelled, BUN/Creatinine Ratio Cancelled, Glucose Cancelled, Calcium Cancelled Micro: Microbiology 08/05/21 00:17 Interface Orders SARS-CoV-2 Antigen (Rapid) - Final Cardiology Labs/Tests 08/05/21 00:04: WBC 11.4 H, RBC 5.08, Hgb 14.5, Hct 43.1, MCV 84.8, MCH 28.5, MCHC 33.6, Plt Count 316, MPV 9.1, Immature Gran % (Auto) 0.400, Neut % (Auto) 53.5, Lymph % (Auto) 35.7, Taliaferro % (Auto) 7.7, Eos % (Auto) 2.2, Baso % (Auto) 0.5, Absolute Neuts (auto) 6.1, Nucleated RBC % 0 08/05/21 00:04: Sodium 139, Potassium 4.1, Chloride 107, Carbon Dioxide 27.0, Anion Gap 5, BUN 18, Creatinine 0.99, Est GFR (MDRD) Af Amer 72, Est GFR (MDRD) Non-Af 60, BUN/Creatinine Ratio 18.1, Glucose 137 H, Calcium 9.0 08/05/21 00:15: PT 12.7, INR 1.0, APTT 29.8 08/05/21 02:10: WBC 9.9, RBC 4.82, Hgb 13.7, Hct 41.8, MCV 86.7, MCH 28.4, MCHC 32.8, Plt Count 274, MPV 9.4, Immature Gran % (Auto) 0.500, Neut % (Auto) 69.0, Lymph % (Auto) 23.6, Taliaferro % (Auto) 5.3, Eos % (Auto) 1.3, Baso % (Auto) 0.3, Absolute Neuts (auto) 6.8, Nucleated RBC % 0 08/05/21 02:10: Sodium 136, Potassium 4.2, Chloride 105, Carbon Dioxide 28.0, Anion Gap 3 L, BUN 17, Creatinine 0.98, Est GFR (MDRD) Af Amer 74, Est GFR (MDRD) Non-Af 61, BUN/Creatinine Ratio 17.4, Glucose 139 H, Calcium 8.6 08/05/21 02:10: Sodium Cancelled, Potassium Cancelled, Chloride Cancelled, Carbon Dioxide Cancelled, Anion Gap Cancelled, BUN Cancelled, Creatinine Cancelled, Est GFR (MDRD) Af Amer Cancelled, Est GFR (MDRD) Non-Af Cancelled, BUN/Creatinine Ratio Cancelled, Glucose Cancelled, Calcium Cancelled Rhythm: EKG: ECHO: Stress Test: Cardiac Cath with PCI 08/05/2021: Moderate LV systolic dysfunction ejection fraction in the range of around 40% with anteroapical hypokinesia There is no systolic gradient across aortic valve. There is no mitral regurgitation noted. Coronary angiography findings 1. Left main coronary artery Short bifurcating into LAD and the left circumflex, angiographically the left main is normal 2. Left anterior descending is a large vessel with a ruptured plaque and thrombus noted in the mid LAD at the site of the diagonal with a PAPITO II flow in the LAD, following PCI and stenting of mid LAD PAPITO-3 flow was achieved LAD is a large vessel reach all the way to the apex had to small diagonal branches and abundant septal branches 3. The left circumflex is large vessel there is obtuse marginals normal and the circumflex in the AV groove is within normal 4. Right coronary artery large dominant angiographically there are luminal irregularity in the proximal mid RCA the distal RCA had nonobstructive atherosclerosis of around 20% PCI: CT Surgery: Holter monitor: EPS: PPM: CXR: Chest CT Scan: Radiography Diagnostic Testing: Radiology Impression Chest X-Ray 08/05/21 00:02 IMPRESSION: No acute abnormal cardiopulmonary finding. Electronically Signed: Kris Grajeda MD at 1:00 EDT Tel , Service support , Documented by User: Dr. Raul Lee MD 08/05/21 14:04 Assessment & Plan Assessment/Plan (1) ST elevation (STEMI) myocardial infarction: (2) Hypertension: (3) Decreased left ventricular systolic function: PLAN: I review the evaluation in this patient including the EKG, current lab, telemetry and I reviewed the current cardiac care plan as documented by the midlevel Patient presented with symptoms of chest pain she had a history of hypertension and she had ST elevation myocardial infarction, with ruptured plaque a large thrombus involving the mid LAD underwent successful percutaneous core intervention with placement of drug-eluting stent to the mid LAD and achievement of excellent result her symptoms of chest pain resolved and ST segment normalized. She has moderate LV systolic dysfunction with anteroapical hypokinesia and her presentation is more than 24 hours symptoms of chest pain. I discussed the cardiac care plan and medication in detail with the patient and the nursing staff 1. Patient will continue on DAPT/Brilinta/aspirin for 1 year and low-dose aspirin indefinitely indefinitely 2. High-dose atorvastatin 40 mg daily 3. Lisinopril 5 mg due to the reduced LV systolic function 4. Beta-wang carvedilol 3.125 mg twice daily Echocardiogram will be performed to assess LV systolic function Patient will be transferred to the PCU from the intensive care unit and if she remains stable she can be discharged home tomorrow for follow-up with the cardiology team at [facility] for continuation of cardiac care plan. HPI Consult Data Date of Consult: 08/05/21 [facility] Medical History Celiac disease (~2012) Hay fever Thyroid disease Home Medications fluticasone propionate 50 mcg/actuation nasal spray,suspension INTRANASAL 30 Days #16 02/04/18 [History Last Taken Unknown] levothyroxine 150 mcg tablet PO 90 Days #90 02/04/18 [History Last Taken Unknown] loratadine 10 mg tablet PO 30 Days #30 02/04/18 [History Last Taken Unknown] Allergy/AdvReac Type Severity Reaction Status Date / Time Penicillins Allergy Other Verified 08/04/21 23:58 celica Allergy Mild unknown Uncoded 02/04/18 12:25 Family History Other Heart disease Surgical History History of coronary artery stent placement (08/05/21) Status post tubal ligation Social History Smoking Status: Former smoker alcohol intake: never Lab / Micro Data Result Diagrams: 08/05/21 02:10 08/05/21 02:10
[2021-08-05] MEDS: 0.9% Saline Lock 10 ML Syringe IV (22:10)
[2021-08-06] VITALS (7 sets, daily range): BP systolic 101–125; BP diastolic 68–72; PULSE 79–101; RESP 16–18; TEMP 36.7–37; O2SAT 97–98
[2021-08-06 04:34] LABS: Hematocrit 43.1 % (37-47); Hemoglobin 14.3 g/dL (12.0-15.0); Mean Corp Hgb Conc 33.2 g/dL (32-36); Mean Corpuscular Hgb 28.5 pg (27.0-32.0); Mean Corpuscular Volume 85.9 fL (81-99); Mean Platelet Vol. 9.2 fl (6.2-12.0); Platelet Count 303 K/mm3 (150-450); RBC Distribution Width CV 13.3 % (11.6-14.6); Red Blood Count 5.02 M/mm3 (4.2-5.4); White Blood Count 11.3 K/mm3 (4.4-11.0)
[2021-08-06 05:06] LABS: Anion Gap 7 (5-15); BUN 12 mg/dL (7-18); BUN/Creat Ratio 13.6 RATIO (10-20); Calcium,Total 8.6 mg/dL (8.5-10.1); Chloride 105 mmol/L (98-107); Creatinine, Serum 0.88 mg/dL (0.55-1.02); EST Glomerular Filtration Rate 68 mL/min (>60); Est Glom Filt Rate - Afr Amer 83 mL/min (>60); Estimated Creatinine Clearance 55.04 ml/min; Glucose 122 mg/dL (74-106); Potassium 4.4 mmol/L (3.5-5.1); Sodium Level 138 mmol/L (136-145)
[2021-08-06] MEDS: Levothyroxine 150 MCG Tablet PO (06:44)
[2021-08-06] MEDS: 0.9% Saline Lock 10 ML Syringe IV (06:44)
[2021-08-06 07:32] LABS: Hemoglobin A1c 5.9 % (3.8-5.6)
[2021-08-06] MEDS: Fluticasone 0.05% 1 SPRAY NASAL.SRY NASAL (08:13)
[2021-08-06] MEDS: Carvedilol 3.125 MG TABLET PO (08:14)
[2021-08-06] MEDS: TICAGRELOR 90 MG TABLET PO (08:14)
[2021-08-06] MEDS: Aspirin 81 MG TAB.CHEW PO (08:20)
[2021-08-06] MEDS: Lisinopril 5 MG Tablet PO (08:20)
[2021-08-06] MEDS: Loratadine 10 MG Tablet PO (08:20)
--- NOTE | 2021-08-06 10:04 | PCS.PANDOC ---
PANDEMIC DOCUMENTATION INITIATED: Date: 07/12/2021 Time: 190
--- NOTE | 2021-08-06 10:36 | PN.CARD_ITS ---
Documented by User: SENA Sauceda 08/06/21 13:08 Subjective Subjective Overall pt does not have any complaints. No concerns over the evening. Pt has not complaints of chest pain/heaviness/tightness. She does not have any SOB. Objective Data Vital Signs: Vital Signs Temp Pulse Resp BP Pulse Ox 98.2 F 101 H 18 116/72 97 08/06/21 07:54 08/06/21 08:23 08/06/21 07:54 08/06/21 07:54 08/06/21 07:54 Oxygen Flow Rate (L/min) 2 Oxygen Delivery Method Room Air Weight: 236 lb 15.951 oz Body Mass Index (BMI) 40.7 Intake & Output: Intake and Output for Last 24 Hours 08/04/21 08/05/21 08/06/21 23:59 23:59 23:59 Intake Total 2774.97 / 2774.97 240 / 240 Output Total 2102 / 2102 Balance 672.97 / 672.97 240 / 240 Lab / Micro Data Result Diagrams: 08/06/21 04:25 08/06/21 04:25 Labs: Laboratory Results - last 24 hr 08/06/21 04:25: WBC 11.3 H, RBC 5.02, Hgb 14.3, Hct 43.1, MCV 85.9, MCH 28.5, MCHC 33.2, RDW Std Deviation 42.0, RDW Coeff of Khoi 13.3, Plt Count 303, MPV 9.2 08/06/21 04:25: Hemoglobin A1c 5.9 H 08/06/21 04:25: Sodium 138, Potassium 4.4, Chloride 105, Carbon Dioxide 26.0, Anion Gap 7, BUN 12, Creatinine 0.88, Estim Creat Clear Calc 55.04, Est GFR (MDRD) Af Amer 83, Est GFR (MDRD) Non-Af 68, BUN/Creatinine Ratio 13.6, Glucose 122 H, Calcium 8.6 Cardiology Labs/Tests 08/06/21 04:25: WBC 11.3 H, RBC 5.02, Hgb 14.3, Hct 43.1, MCV 85.9, MCH 28.5, MCHC 33.2, Plt Count 303, MPV 9.2 08/06/21 04:25: Hemoglobin A1c 5.9 H 08/06/21 04:25: Sodium 138, Potassium 4.4, Chloride 105, Carbon Dioxide 26.0, Anion Gap 7, BUN 12, Creatinine 0.88, Est GFR (MDRD) Af Amer 83, Est GFR (MDRD) Non-Af 68, BUN/Creatinine Ratio 13.6, Glucose 122 H, Calcium 8.6 Rhythm: SR Stress Test: Cardiac Cath with PCI 08/05/21: Moderate LV systolic dysfunction ejection fraction in the range of around 40% with anteroapical hypokinesia There is no systolic gradient across aortic valve. There is no mitral regurgitation noted. Coronary angiography findings 1. Left main coronary artery Short bifurcating into LAD and the left circumflex, angiographically the left main is normal 2. Left anterior descending is a large vessel with a ruptured plaque and thrombus noted in the mid LAD at the site of the diagonal with a PAPITO II flow in the LAD, following PCI and stenting of mid LAD PAPITO-3 flow was achieved LAD is a large vessel reach all the way to the apex had to small diagonal branches and abundant septal branches 3. The left circumflex is large vessel there is obtuse marginals normal and the circumflex in the AV groove is within normal 4. Right coronary artery large dominant angiographically there are luminal irregularity in the proximal mid RCA the distal RCA had nonobstructive atherosclerosis of around 20% Conclusion; This patient presented with STEMI/ST elevation noted in the anterior leads with reciprocal change in the inferior the culprit being the mid LAD with a ruptured plaque and thrombus with successful PCI as explained and placement of drug-e luting stent/primary stenting with excellent result Patient has reduced LV systolic dysfunction her presentation is more than 24- hour as she had the symptoms more than 24-hour and has anteroapical hypokinesia with ejection fraction around 40%. Radiography Diagnostic Testing: Radiology Impression Echocardiogram 08/05/21 05:52 Interpretation Summary The estimated ejection fraction is EF 45-50 %. Distal septal and Apical Hypokinesia Grade # I Diastolic Dysfunction No prior echo to compare ___ Ordering Physician: Raul Lee Referring Physician: FLOR CHAVIRA Performed By: Mare Hernandez, NOLAN, RVT Physical Exam Const alert, oriented x3, no apparent distress, average body habitus, no limitations, healthy appearing and well nourished HEENT normocephalic, head/scalp atraumatic, hearing grossly normal bilaterally, moist oral mucous membranes and dentition normal Eyes PERRL, EOMs intact bilaterally, conjunctivae normal and no scleral icterus Neck full ROM, nuchal rigidity, no lymphadenopathy, supple and no JVD Chest inspection of chest normal Resp normal respiratory effort, normal air movement, no retractions, no use of accessory muscles and clear to auscultation bilaterally Cardio regular rate, regular rhythm, S1 normal heart sound, S2 normal heart sound, no murmurs, no rub, no gallops, no clicks, no JVD and peripheral pulses 2+ throughout GI normal to inspection, nondistended, normoactive bowel sounds, soft to palpation, non-tender and non-distended Extremity normal to inspection, normal capillary refill, no joint enlargement, no clubbing, cyanosis or edema and no pedal edema Neuro oriented x3, CN's II-XII intact bilaterally and moves all extremities Assessment & Plan Assessment/Plan (1) ST elevation (STEMI) myocardial infarction: (2) Hypertension: (3) Decreased left ventricular systolic function: PLAN: * Pt urgently underwent stenting to her LAD. * She does have a cardiomyopathy from her NSTEMI. She is on Coreg and Lisinopril. Will repeat echo on OP basis in approx 3 months to re-evaluate this. * Lipids are not ideal, will continue with Atorvastatin * Pt will be d/c home on Brilinita, ASA, Coreg, lisinopril and atorvastatin * She will be referred to cardiac rehab * will follow up closely in office Charges/Coding Visit Charges Inpatient E&M: 00564 Subs Hosp L3 Documented by User: Dr. Raul Lee MD 08/06/21 16:55 Lab / Micro Data Result Diagrams: 08/06/21 04:25 08/06/21 04:25 Assessment & Plan Assessment/Plan (1) ST elevation (STEMI) myocardial infarction: (2) Hypertension: (3) Decreased left ventricular systolic function: (4) History of coronary artery stent placement: PLAN: This patient seen and evaluated today at bedside I review the current data, including lab, telemetry current medication and agree with the current plan of management as documented by the midlevel Patient presented with STEMI/anterior MS underwent successful PCI and stent of the LAD Rest of her coronary arteries including left main, left circumflex and RCA has no obstructive atherosclerosis Patient has reduced LV systolic dysfunction with ejection fraction in the range of 40% and anteroapical hypokinesia and will be on medical therapy. Patient will follow up with [facility] for continuation of cardiac care plan and also to start on phase 1 cardiac rehab program. At bedside today all questions, answered related to her medication and plan of cardiac care.
--- NOTE | 2021-08-06 16:36 | PCM.DC ---
Discharge Instructions Diet Discharge Diet: No restrictions Activity Discharge Activity: Return to Normal Activity and May Drive Weight Bearing Status: Full weight bearing Follow Up Care Test Results: Test results from this visit will be discussed in further detail at your follow-up appointment, if applicable. Discharge Plan Admission Admit Date/Time: 08/05/21 00:30 Primary Reason for Your Visit: acute [place] Attending Provider: Maurilio Anderson Primary Care Provider: Kris Goff Instructions Patient Instructions: ED Chest Pain, Noncardiac Additional Instructions / Restrictions: Do not take any Aleve, ibuprofen, or extra aspirin other than 81 mg daily Discharge Orders/Prescriptions Prescriptions: New atorvastatin 40 mg Tablet 40 mg PO DAILY Qty: 30 RF: 0 carvedilol 3.125 mg Tablet 3.125 mg PO BID Qty: 60 RF: 0 lisinopril 5 mg Tablet 5 mg PO DAILY Qty: 30 RF: 0 Brilinta 90 mg Tablet 90 mg PO BID Qty: 60 RF: 0 aspirin 81 mg tablet,delayed release (DR/EC) 81 mg PO DAILY Qty: 30 RF: 0 Continued levothyroxine 150 mcg tablet PO 90 Days Qty: 90 RF: 0 fluticasone propionate 50 mcg/actuation spray,suspension INTRANASAL 30 Days Qty: 16 RF: 0 Discontinued loratadine 10 mg tablet PO 30 Days Qty: 30 RF: 0 Referrals / Follow Up: Kris Enriquez MD [STAFF PHYSICIAN] - 08/13/21 1:45 pm (Cardiac Rehab Evaluation appointment. ) Kris Goff MD [Primary Care Provider] - Within 2 Weeks Angela Johnson NP, TRAINING AND DEVELOPMENT MANAGER-C [Nurse Practitioner] - 08/20/21 9:00 am Disposition Disposition (needs filled in before D/C Order can be placed): Home, Self Care
--- NOTE | 2021-08-06 18:02 | PCM.DC.SUM ---
Providers Date of Admission: 08/05/21 Date of Discharge: 08/06/21 Primary Care Physician: Dr. Kris Goff MD Reason For Visit: STEMI Diagnosis Discharge Diagnosis (1) ST elevation (STEMI) myocardial infarction: Status: Acute Code(s): I21.3 - ST elevation (STEMI) myocardial infarction of unspecified site (2) Hypertension: Status: Chronic Code(s): I10 - Essential (primary) hypertension (3) Decreased left ventricular systolic function: Status: Acute Code(s): I51.9 - Heart disease, unspecified (4) History of coronary artery stent placement: Status: Acute Code(s): Z95.5 - Presence of coronary angioplasty implant and graft Plan: Final diagnosis: #1 ST elevation myocardial infarction type I #2 essential hypertension #3 ischemic cardiomyopathy #4 hyperlipidemia Medications at Discharge Home Medications fluticasone propionate 50 mcg/actuation nasal spray,suspension INTRANASAL 30 Days #16 02/04/18 levothyroxine 150 mcg tablet PO 90 Days #90 02/04/18 aspirin 81 mg PO DAILY #30 tab 08/06/21 atorvastatin 40 mg PO DAILY #30 tab 08/06/21 carvedilol 3.125 mg PO BID #60 tab 08/06/21 lisinopril 5 mg PO DAILY #30 tab 08/06/21 ticagrelor [Brilinta] 90 mg PO BID #60 tab 08/06/21 Hospital Course Operations None Procedures 2-D Echocardiogram and Cardiac catheterization (With DERIC inserted in LAD) Summary of Care Provided Minutes Spent on Discharge: 32 Hospital Course: This 66-year-old white female was seen in the emergency room at [facility] with a chief complaint of chest pain, EKG was obtained which indicated a STEMI, she was taken to the cardiac Hospice Admitting Clerk where a DERIC was inserted into the LAD. Postop, patient had no complications and her hospital stay was uneventful. Patient's medications were adjusted, it was noted that she had a decreased ejection fraction. On 08/06/2021, patient was seen and examined: On examination she appeared in good health and spirits, she does not appear to be in any distress. Vital signs as documented. Skin warm and dry and without overt rashes. Neck without JVD, thyroid appears normal, trachea is midline, neck is supple. Lungs clear, normal air movement was noted. Heart exam notable for regular rhythm, normal sounds and absence of murmurs, rubs or gallops. Abdomen unremarkable and without evidence of organomegaly, masses, or abdominal aortic enlargement, bowel sounds are present in all 4 quadrants, no abdominal tenderness was noted. Extremities nonedematous, no cyanosis was noted, no clubbing was noted. Neuro: Cranial nerves II through XII are grossly intact, no focal motor deficits were noted, sensation to light touch and pinprick is intact, motor exam 5/5 throughout. Psych: Patient is alert and oriented x3, she does not appear anxious or depressed, she does not appear agitated. On 08/06/2021, patient was seen and examined and felt to be in stable condition for discharge home Weight / BMI Weight Weight: 107.5 kg Body Mass Index (BMI) 40.7 ABG / Lab / Microbiology Data Result Diagrams: 08/06/21 04:25 08/06/21 04:25 Laboratory: Laboratory Results - last 24 hr 08/06/21 04:25: WBC 11.3 H, RBC 5.02, Hgb 14.3, Hct 43.1, MCV 85.9, MCH 28.5, MCHC 33.2, RDW Std Deviation 42.0, RDW Coeff of Khoi 13.3, Plt Count 303, MPV 9.2 08/06/21 04:25: Hemoglobin A1c 5.9 H 08/06/21 04:25: Sodium 138, Potassium 4.4, Chloride 105, Carbon Dioxide 26.0, Anion Gap 7, BUN 12, Creatinine 0.88, Estim Creat Clear Calc 55.04, Est GFR (MDRD) Af Amer 83, Est GFR (MDRD) Non-Af 68, BUN/Creatinine Ratio 13.6, Glucose 122 H, Calcium 8.6 Microbiology: Microbiology 08/05/21 00:17 Interface Orders SARS-CoV-2 Antigen (Rapid) - Final D/C Instructions Discharge Diet: No restrictions Weight Bearing Status: Full weight bearing Meaningful Use Info Meaningful Use Diagnoses (Choose all that apply): AMI AMI/Post PCI/Angioplasty Aspirin given w/in 24hrs of arrival?: Yes ASA at discharge?: Yes Antiplatelet Therapy at Discharge:: Yes Statins at discharge?: Yes [place]/ARB at discharge?: Yes Beta [place] at discharge?: Yes Done w/ Acute RI measure.: Yes Documented LVEF (%): 45 Discharge Plan Admission Admit Date/Time: 08/05/21 00:30 Primary Reason for Your Visit: acute [place] Attending Provider: Maurilio Anderson Primary Care Provider: Kris Goff Instructions Patient Instructions: ED Chest Pain, Noncardiac Additional Instructions / Restrictions: Do not take any Aleve, ibuprofen, or extra aspirin other than 81 mg daily Discharge Orders/Prescriptions Prescriptions: New atorvastatin 40 mg Tablet 40 mg PO DAILY Qty: 30 RF: 0 carvedilol 3.125 mg Tablet 3.125 mg PO BID Qty: 60 RF: 0 lisinopril 5 mg Tablet 5 mg PO DAILY Qty: 30 RF: 0 Brilinta 90 mg Tablet 90 mg PO BID Qty: 60 RF: 0 aspirin 81 mg tablet,delayed release (DR/EC) 81 mg PO DAILY Qty: 30 RF: 0 Continued levothyroxine 150 mcg tablet PO 90 Days Qty: 90 RF: 0 fluticasone propionate 50 mcg/actuation spray,suspension INTRANASAL 30 Days Qty: 16 RF: 0 Discontinued loratadine 10 mg tablet PO 30 Days Qty: 30 RF: 0 Referrals / Follow Up: Kris Enriquez MD [STAFF PHYSICIAN] - 08/13/21 1:45 pm (Cardiac Rehab Evaluation appointment. ) Kris Goff MD [Primary Care Provider] - Within 2 Weeks Angela Johnson NP, APPLICATION TECHNICIAN-C [Nurse Practitioner] - 08/20/21 9:00 am Disposition Disposition (needs filled in before D/C Order can be placed): Home, Self Care Charges/Coding Visit Charges Inpatient E&M: 63314 Disch Hosp
== END 2021-08-06 17:22 | disposition home or self-care (01) | DRG 247 ==
LOC: ED 08-05 00:08 → ICU 08-05 00:34 → PCU 08-06 09:50
PROVIDERS: Internal Medicine; Admitting Provider Internal Medicine Interventional Cardiology; Emergency Provider Emergency Medicine; PCP Family Medicine; Referring Provider Internal Medicine Interventional Cardiology; Visit Provider Internal Medicine
DX: I21.3 ST elevation (STEMI) myocardial infarction of unspecified site (principal); I42.9 Cardiomyopathy, unspecified; Z20.822 Contact with and (suspected) exposure to COVID-19; I10 Essential (primary) hypertension; E78.5 Hyperlipidemia, unspecified; E03.9 Hypothyroidism, unspecified; K90.0 Celiac disease; Z79.890 Hormone replacement therapy; Z79.899 Other long term (current) drug therapy; Z87.891 Personal history of nicotine dependence
CPT/HCPCS: 71045; 80048; 83036; 84484; 85025; 85027; 85610; 85730; 87426; 92941; 93005; 93306; 93458; 99152; 99153; 99285; C1874; J7030; Q9957; Q9967; A4216; C1725; C1769; C1887; C1894; C9606; J1327; J1940; J3490

== ENCOUNTER → 2021-08-13 13:29 | Outpatient (CLI) | payer MEDICARE, BC, SELFPAY ==
--- NOTE | 2021-08-13 13:50 | PCM.CR.ITP ---
Diagnosis - General Information Admitting Diagnosis: STEMI, PCI w/coronary stent Secondary Diagnosis: HTN, HLD Personal Learning Style:: Audio/Visual, Written Barriers to Learning: No Barriers Stage of change r/t lifestyle modifications:: Action Gave educational material for:: Treating Heart Disease, Emotions & Heart Disease, Stress Management & Relaxation, Sleep Disorders & Heart Disease, How The Heart Works, What it means to have Heart Disease, How Coronary Artery Disease is Diagnosed, Heart Procedures, What Heart Medications Do, Risk Factors & Modifications, Living an Active Life, Nutrition - Education/Goals Individual Counseling: Initial Assessment: Abnormal Cholesterol Levels, High Blood Pressure, Overweight/Obesity Cardiac Rehabilitation Goals: 1. Maintain the individual as the primary focus of care. 2. To improve the patient's quality of life. 3. Identification of cardiac risk factors and provide cardiac risk factor management. 4. Enhance the psychosocial status of the patient. 5. Reconditioning enough to allow the patient to resume customary activities. 6. Control symptoms of cardiac disease Personal Goals: Initial Assessment: Improve energy level, Improve muscle strength and endurance, Improve diet and eating habits (eat healthier), Control risk factors (learn risk factor modification) Scale for measuring improvement of personal goals: Enter appropriate number in Comments. 2 = Unchanged. 3 = Slightly Better. 4 = Moderate Improvement. 5 = Met my Goal - Diagnosis & Disease Process Outcomes/Goals: Pt IDs own risk factors & lifestyle modifications by Session 10, Verbalizes symptoms of angina & response by session 3., Pt independently manages Plan/Interventions: Assist Pt to ID & engage in lifestyle modification to reduce CVD risk, Instruct on individual risk factors, Review symptoms of angina & emergency actions, Review secondary diagnosis & identify educational needs. - Safety Referral to Physical Therapy: No Referral to [facility] Case Management: No Fall Risk Assessed:: Yes Assistive Devices:: None Exercise - Initial Assessment - Visit Date of Eval: 08/13/21 Session #:: 0 - Pre-cardiac rehab evaluation Mets: Pre-: >7 METS for 30 minutes by discharge - Physician Prescribed Exercise Modalities: Treadmill, Airdyne, NuStep Frequency: 3x/week for 12 weeks [36 sessions] Intensity: 60-80% of age predicted maximum heart rate reserve Current METSs:: 3.0 Target Heart Rate:: 101-132 Resting Blood Pressure: 106/85 EKG Type: Normal sinus rhythm Current Physical Activity or Exercising minutes: Physically active at home - Outcomes & Goals Goals:: Verbalizes understanding of THR, RPE & goal METS by session 6, Documents in home exercise log/reports 30 min aerobic 5 day/wk by DC, Demonstrates accurate pulse taking by DC - Intervention & Plan Exercise Program Goals: Instruct on personal THR & RPE, Instruct on MET level & personal MET goal, Show patient to take own pulse /validate performance until accurate, Instruct on home exercise - Physical Activity Home Exercise Physical Activity - Home Exercise: Safe Exercise, Warm-up, Self-monitoring, Cool-Down, Home Exercise > 30 min Daily, Sitting Time <3 hours/daily - Outcomes & Goals Outcomes/Goals: Demonstrates correct Warm-up/exercise Cool-Down (S3) if = 2.5 METs, Verbalizes symptoms of exercise intolerance by Session 3 (S3), Demonstrate safe equipment use (S3) & follows exercise prescrition (6) - Intervention & Plan Plan/Intervention: Instruct warm-up & cool-down if exercising at > 2 METs, Instruct on symptoms of exercise intolerance & actions to take, Instruct & monitor on saf, Assess intial functional capacity & safety risk Nutrition - Initial Assessment - Program Goals Nutrition Program Goals: LDL <100 optimal. 100 - 129 Near optimal. 130 - 159 Borderline High. 160 - 189 High. Total Cholesterol <200 desirable. 200 - 239 Borderline High. >/= 240 High. HDL < 40 Low >/=60 High. Triglycerides <150 desirable. <199 optimal. VlDL 5 - 40. HgbA1C <7%. BMI <25 Patient has diagnosis of Hyperlipidemia (ICD E78)?: Yes - Visit Date of Assessment:: 08/13/21 Session #:: 0 - Precardiac rehab evaluation - Cholesterol/Lipids Triglycerides (mg/dL): 160 - 03/05/2021 Total Cholesterol (mg/dL): 217 LDL Cholesterol (mg/dL): 141 HDL Cholesterol (mg/dL): 44 Determine presence & major risk factors that modify LDL goal: Hypertension or hypertensive medication, Low HDL cholesterol <40 mg/dL*, Age men > 45 years; women >/= 55 years Outcomes/Goals: Pt IDs own risk factors & lifestyle modifications by Session 10, Verbalizes symptoms of angina & response by session 3., Pt independently manages Intervention/Plan: Instruct on personal lipid levels & lipid goals/NCEP guidelines, Instruct on cholesterol Referral to dietitian:: Yes - Medical Nutrition Therapy - Diabetes (Other Core Measures) Diabetes Type: Not Applicable - Weight Mgt (Other Care) Not Applicable: No Height: 5 ft 4 in Weight:: 237 lb BMI: 40.6 Diagnosis Overweight/Obesity BMI> 30% ICD-10 E66: Yes Diagnosis High BMI/Morbid Obesity BMI> 35% ICD-10 Z68: Yes Intervention/Plan: Instruct on ideal BMI & set weight loss goal w/patient, Assist pt to ID & incorporate diet changes for weight loss by S9, Refer to Structured Weight Loss program as appropriate, Encourage goal of using 250-300dcal per session for weight loss - Healthy Eating Habits Will attend diet classes:: Yes Outcomes/Goals:: Consume diet rich in vegs,fruits,whole grain/high fiber,fish,lean meat, Limit sat/trans fats,cholesterol & added salts & sugars Intervention/Plan:: Assess current eating habits - Education Gave educational materials for:: Healthy eating Nutrition - 30-Day Assessment Nutrition - 60-Day Assessment Nutrition - 90-Day Assessment Nutrition - Final Assessment Medical - Initial Assessment - Visit Date of Eval: 08/13/21 Session #:: 0 - Pre-cardiac rehab evaluation - Medication Compliance Preventative Medication(s):: Aspirin, TESFAYE inhibitor, Clopidogrel/P2Y12 inhibit, Ticagrelor/P2Y12 inhibitor, Statin/lipid, Beta wang, Warfarin/Coumadin, Eliquis, ARB (Angiotensi Rcap) H/O mental health issues: depression, anxiety, or addiction?: No Doesn?t believe in the benefits of treatment?: No Believes medications are unnecessary or harmful?: No Has a concern about medication side effects?: No Expresses concern over the cost of medications?: No Outcomes/Goals: Verbalizes medications,desired effect & common side effects @ DC, Pt self-reports following medication regimen, Keeps card in wallet w/medications listed by DC Interventions/plans: Instruct on medication effects & side effects, Review medication list w/patient every two weeks, Instruct importance of taking meds as ordered & assist problem solving - Tobacco Use Tobacco Use: Non-smoker - Hypertension Hypertension Diagnosis:: Hypertension ICD-10 I10 Resting Blood Pressure:: 106/85 Citizen [place] [employer] Hypertension Guidelines: Citizen [place] [employer] Hypertension Guidelines. Normal BP Less than 120/80. Elevated BP 120/80. Hypertension Stage 1: BP 130-139/80-89. Hypertesnion Stage 2: BP 140 or higher/90 or higher. Hypertension Crisis: BP higher than 180/120 Outcomes/Goals: Able to verbalize/achieve optimal blood pressure <130/80 Interventions/plan: Instruct on optimal blood pressure, hypertension & medications, Instruct on effects of sodium, alcohol, stress, exercise &hypertension - Tobacco Cessation Referral Smoking Cessation Referral:: No Individual Education/Counseling:: No Education Schedule Given:: Yes Medical- 30-Day Assessment Medical- 60-Day Assessment Medical- 90-Day Assessment Medical - Final Assessment Psychosocial - Initial Assess - VIsit Date of Eval: 08/13/21 Session #:: 0 - Pre-cardiac rehab evaluation Not Applicable: Yes History of previous Mental disease:: No - Psychosocial Test Tool Used:: [employer] Umthunzi QOL Cardiac, PHQ-9 Questionnaire phq-9 Severity: Severity. 1-4 Minimal Depression. 5-9 Mild Depression. 10-14 Moderate Depression. 15-19 Moderately Sever Depression. 20-27 Severe Depression. Rule: - Referral to Behavioral Health PS - Interventions: Yes Attend Stress Management Classes, No Referral to Behavioral Health if PHQ-9 score >9:, No Referral to [facility], No Referral to Physician if PHQ-9 if score is 5-9: - Outcomes/Goals: See list Psychosocial Outcomes/Goals:: ID's personal stressors & 2 strategies to manage stress by discharge - Intervention/Plan: See List Interventions/Plan:: Assess stressors,coping strategies & signs of derpression on admission, Instruct/assist pt to develop coping & personal stress Mgt strategies, Instruct patient to recognize signs & symptoms of depression, Instruct patient to recog Psychosocial - 30-Day Assess Psychosocial - 60-Day Assess Psychosocial - 90-Day Assess Psychosocial - Final Assessmen Patient Health Questionnaire Initial Assessment 1. Little interest or pleasure in doing things: Several days 2. Feeling down, depressed, or hopeless: Not at all 3. Trouble falling or staying asleep, or sleeping too much: Several days 4. Feeling tired or having little energy: Nearly every day 5. Poor appetite or overeating: Several days 6. Feeling bad about yourself -- or that you are a failure or have let yourself or your family down: Not at all 7. Trouble concentrating on things, such as reading the newspaper or watching television: Not at all 8. Moving or speaking so slowly that other people could have noticed. Or the opposite - being so fidgety or restless that you have been moving around a lot more than usual: Not at all 9. Thoughts that you would be better off , or of hurting yourself in some way: Not at all How difficult have these problems made it for you to do your work, take care of things at home, or get along with other people?: Not difficult at all Total Score: 6 FRANCISCA-Q SV Test - Statements CAD is a disease of the arteries in the heart: False Examples of risk factors for heart disease: True Angina is chest pain or discomfort: True The benefits of resistance training include: True Eating more meat and dairy products: False Anti-platelet medications such as aspirin are important: True The only effective way to manage stress: False An exercise warm-up slowly increases heart rate: True Prepared, processed foods usually have high sodium: True Depression is common after a heart attack: I Don't Know The statin medications lower cholesterol: True To control blood pressure, lower the amount of sodium: True If someone gets chest discomfort during walking: False Transfats are partially hydrogenated vegetable oils: True Sleep apnea that is not treated increases the risk: True To control cholesterol, one should become a vegetarian: False Someone knows if he/she is exercising at the right level: I Don't Know Diabetes cannot be prevented with exercise & health eating: False Stress is a large risk for heart attack: True A diet that can help lower blood pressure is rich in: True - Total Score Total Correct Responses: 17 Self-Efficacy Initial Assessment We would like to know how confident you are in doing certain activities. Please select your confidence level for:: Select your confidence level for the following using the scale 1-10 where 1 is not at all confident and 10 is totally confident. Your score is the average of all 6 responses. Fatigue: How confident are you that you can keep the fatigue caused by your disease from interfering with the things you want to do? Select Number: 10 Physical Discomfort or Pain: How confident are you that you can keep the physical discomfort or pain of your disease from interfering with the things you want to do? Select Number: 10 Emotional Distress: How confident are you that you can keep the emotional distress caused by your disease from interfering with the things you want to do? Select Number: 10 Other Symptoms or Health Problems: How confident are you that you can keep other symptoms or health problems from interfering with the things you want to do? Select Number: 10 Different Tasks and Activities: How confident are you that you can do the different tasks and activities needed to manage your health condition so as to reduce your need to see a doctor? Select Number: 10 Medication: How confident are you that you can do things other than just taking medication to reduce how much your illness affects your everyday life? Select Number: 10 Total Score:: 10 Nutrition Survey
--- NOTE | 2021-08-13 13:51 | CR.HP_ITS ---
CR - History & Physical - General Arrival date:: 08/13/21 Arrival time:: 13:53 Date of Referral:: 08/05/21 Date of CR Evaluation:: 08/13/21 Referring Physician: Dr. Kris Enriquez Primary Diagnosis: STEMI, PCI w/coroanry stenting - History of Present Cardiac Event Onset Date: Enter Onset Date of cardiac illnesses in Comment field below Acute Myocardial Infarction within 12 months:: Yes - ST segment elevated myocardial infarction (STEMI) 08/05/2021 PTCA or coronary stenting:: Yes - 08/05/2021 Type of Symptoms:: Went to bed and felt like someone stabbed her with an ice pick in the chest. As the pain increased became more shot of breath. Interventions with present event:: Came by private car to the emergency room and was quickly taken to laborer rags Were there any complications?: None - Sleep Disorder Evaluation Hx of Sleep Apnea: No Do you snore loudly (louder than talking or can be heard through closed doors)?: Yes Do you often feel tired/ fatigued/ sleepy during daytime?: Yes - sincethe heart attack more so, more related to the new medications Has anyone observed you stop breathing during sleep?: No History of Hypertension (for STOP score): Yes STOP Results: Positive - Medications Home Medications: Ambulatory Orders Medication Instructions Recorded fluticasone propionate 50 INTRANASAL 30 Days #16 02/04/18 mcg/actuation nasal spray,suspension levothyroxine 150 mcg tablet PO 90 Days #90 02/04/18 aspirin 81 mg PO DAILY #30 tab 08/06/21 atorvastatin 40 mg PO DAILY #30 tab 08/06/21 carvedilol 3.125 mg PO BID #60 tab 08/06/21 lisinopril 5 mg PO DAILY #30 tab 08/06/21 ticagrelor [Brilinta] 90 mg PO BID #60 tab 08/06/21 - Allergies Allergies/Adverse Reactions: Allergies Penicillins Allergy (Verified 08/04/21 23:58) Other Advanced Directives - Advanced Directives Power of Knife Grinder: Yes Living Will: Yes Advance Directives Information Provided: No Advance Directives on File: No DNR Order?:: Yes - MOLST See MOLST form: No Past Medical History - Covid-19 Screening Fever: No Unexplained muscle aches: No Current respiratory symptoms: No Upper respiratory infections symptoms: No Gastro-intestinal symptoms: No Rod-[id number]-Wyvfnm symptoms: No Has tested positive for COVID-19 in last 30 days: No Date of testin04/10/21 - Had both vaccination of Moderna Had contact w/person w/symptoms or Covid-19 (+) last 14 days: No Has High Risk Exposures ID'd by Health dept/Inf Control team: No 65 years or older:: Yes Lives in Assisted Living facility:: No Has a chronic lung disease or moderate to severe asthma:: No Has a serious heart condition:: No Immunocompromised:: No Severely obese (Body Mass Index of 40 or higher):: No Diabetic:: No Has chronic kidney disease undergoing dialysis:: No Has liver disease:: No - Past Medical Illness Medical History: Past Medical History (Last Reviewed 08/05/21 @ 12:31 by Linda SHETTY, PA) Celiac disease Onset Date: ~2012 K90.0 Hay fever J30.1 Thyroid disease E07.9 - Past Surgical History Surgical History: Past Surgical History (Last Reviewed 08/05/21 @ 12:31 by Linda SHETTY, PA) History of coronary artery stent placement Onset Date: 08/05/21 Z95.5 PCI-DERIC-Mid LAD w/ 3 x 22 mm Orsiro 08/05/21 Status post tubal ligation Z98.51 - Family History Summary Family History: Family History (Last Reviewed 08/05/21 @ 12:31 by Linda SHETTY, PA) Other Heart disease Social History - Smoking History Smoking Status: Former smoker Years Smokin Hx Smoking Cessation Date: 04/27/02 Hx Tobacco Use: No Hx Smoking Exposure: No - Alcohol Use Alcohol Usage: Yes - current alcohol use occasional glass of wine - Substance Abuse Hx Substance Use: No - Occupation Occupation (List type of work in comments):: Retired - Hobbies, Recreation, Social Activities Hobbies: Walking, Other - activities with grandchildren Recreational Activities: I am able to engage in most, but not all activities - do as many as I can until dizziness starts, feeling unsettled. Social Environment - Status Marital Status: - Current Living Arrangements Living Environment:: Spouse - Children How many children do you have?: 3 Do any of your children live nearby?: Yes - Daughter in [place] - Safety Do you feel safe in your surroundings?: Yes - Assistance Do you need any assistance at home?: no Review of Systems - Review of Systems Hints: Right click = Denies (Slash). Left click = Reports ([place]) Review of Present Symptoms: Reports: Shortness of Breath with Exertion - when taking the dog for a walk and climbing an incline can notice the change in shortnessof breath but not severe enough I have to stop, I can tell it's there., Dizziness/Lightheadedness, Fatigue, Appetite - Normal - for the most part, Appetite - Special Diet - [place]utten free diet, low use of sodium., Sleep - Normal. Denies: Shortness of Breath at Rest, Angina, Heart Arrhythmia/Irregularities, Sexual Changes - Pain Is Patient Pain Free?: Yes Pain Location: none Risk Factor Assessment - Chief Complaint Chief Complaint: 66 yr old female patient of Dr. Kris Yao who [facility] following recent STEMI on 08/05/2021. Patient wa taken immediately to the catheterization laboratory technician for PCI intervention. Patient states she has been doing well at home since the procedure. - Vital Signs Temperature: 97.5 F Respiratory Rate: 18 Pulse Ox: 98 Blood Pressure: 106/85 - Pulse Pulse Rate: 74 Pulse Rhythm: Regular - Hypertension How long have you been treated?: recent onset with heart attack, recent medication related to the STEMI Blood Pressure Sitting - Left Arm: 106/85 - Blood Cholesterol/Lipids Total Cholesterol (mg/dL) Goal = less than 200 mg/dL: 217 - 03/05/2021 HDL Cholesterol (mg/dL) Goal = less than 40 mg/dL: 44 LDL Cholesterol (mg/dL) Goal = less than 70 mg/dL: 141 Triglycerides (mg/dL) Goal = less than 150 mg/dL: 160 - Obesity Height: 5 ft 4 in Weight:: 237 lb Weight in Pounds: 237.0 lbs Weight Source: Acute Hospital Body Mass Index (BMI): 40.6 Nutritional Referral for Obesity: Yes - Why Weight - Physical Inactivity Physical Inactivity: Reg Exercise 30 min/day - walking the dog, physical a ctivities, activities with grandchildren. fairly active. - Risk Stratification Risk Guidelines: Lowest Risk: Risk Factor for Smoking, Risk Factor for Dyslipidemia, Risk Factor for Diabetes, Risk Factor for Hypertension, Risk Factor for Sedentary Lifestyle, Risk Factor for Depression, Highest Risk: Risk Factor for Obesity - Family History Family History: Family History (Last Reviewed 08/05/21 @ 12:31 by Linda Garza PA, PA) Other Heart disease Motivation - Motivation to Participate On a scale of 1 to 10, how prepared are you to commit to attending program?: 8 What do you see as barriers to successfully being able to complete the program?: no What do you see as the benefits of succesfully completing the program? In other words, what do you hope to get out of participating in the program?: learn something along the way, better health Are there issues you are dealing with that will interfere with completing the program?: no Do you have a spouse or signficant other, family or friends who will help support you to complete the program?: Yes
[2021-08-13 14:11] VITALS: BP 106/85; BMI 40.6
[2021-08-13 14:37] VITALS: BP 106/85; PULSE 74; RESP 18; TEMP 36.4; O2SAT 98; BMI 40.6
== END ==
PROVIDERS: PCP Family Medicine; Referring Provider Internal Medicine Cardiovascular Disease; Visit Provider Internal Medicine Cardiovascular Disease
DX: I11.9 Hypertensive heart disease without heart failure (principal); K90.0 Celiac disease; E07.9 Disorder of thyroid, unspecified; I25.2 Old myocardial infarction; Z95.5 Presence of coronary angioplasty implant and graft

== ENCOUNTER 2021-08-25 08:00 | Outpatient (RCR) | payer MEDICARE, BC, SELFPAY ==
[2021-08-13 14:11] VITALS: BMI 40.6
== END 2021-08-26 23:59 ==
LOC: CR 08:00
PROVIDERS: PCP Family Medicine; Referring Provider Internal Medicine Cardiovascular Disease; Visit Provider Internal Medicine Cardiovascular Disease
DX: I21.3 ST elevation (STEMI) myocardial infarction of unspecified site (principal); I10 Essential (primary) hypertension; Z95.5 Presence of coronary angioplasty implant and graft
CPT/HCPCS: 93798

== ENCOUNTER → 2021-09-02 07:06 | Outpatient (CLI) | payer MEDICARE, BC, SELFPAY ==
[2021-08-13 14:11] VITALS: BMI 40.6
[2021-09-02 10:44] LABS: AST(SGOT) 17 U/L (15-37); Alanine Aminotransfer ALT/SGPT 31 U/L (13-56); Albumin, Serum 3.5 g/dL (3.2-5.0); Alkaline Phosphatase 111 U/L (45-117); Cholesterol 124 mg/dL (200); Globulin 3.8 g/dL (2.2-4.2); High Density Lipoprotein 42 mg/dL; Protein, Total 7.3 g/dL (6.4-8.2); Triglycerides 108 mg/dL; Very Low Density Lipoprotein 22 mg/dL (5-40)
== END ==
PROVIDERS: PCP Family Medicine; Referring Provider Nurse Practitioner Gerontology; Visit Provider Nurse Practitioner Gerontology
DX: E78.2 Mixed hyperlipidemia (principal)
CPT/HCPCS: 36415; 80061; 80076

== ENCOUNTER 2021-09-24 08:00 | Outpatient (RCR) | payer MEDICARE, BC, SELFPAY ==
[2021-08-13 14:11] VITALS: BMI 40.6
--- NOTE | 2021-09-15 07:16 | PCM.CR.ITP ---
Diagnosis Exercise - 30-day Assessment - Visit Date of Eval: 09/15/21 Session #:: 11 - Physician Prescribed Exercise Modalities: Treadmill, Biodyne - Biodyne Replaced with SciFit Lateral Physician Assistant, NuStep Frequency: 3x/week for 12 weeks [36 sessions] Intensity: 60-80% of age predicted maximum heart rate reserve Current METSs:: 4.0 Target Heart Rate:: 101-132 Current RPE:: 12-13 Maximum Excercise HR:: 113 Resting Blood Pressure: 122/80 Maximum Exercise Blood Pressure: 142/68 EKG Type: NSR to sinus tach with rare PVC and PAC. Current Physical Activity or Exercising minutes: 38 - Outcomes & Goals Goals:: Verbalizes understanding of THR, RPE & goal METS by session 6, Documents in home exercise log/reports 30 min aerobic 5 day/wk by DC, Demonstrates accurate pulse taking by DC - Intervention & Plan Exercise Program Goals: Instruct on personal THR & RPE, Instruct on MET level & personal MET goal, Show patient to take own pulse /validate performance until accurate, Instruct on home exercise - 30-day Reassessments 30 day Reassessments:: Progressing - Physical Activity Home Exercise Physical Activity - Home Exercise: Safe Exercise, Warm-up, Self-monitoring, Cool-Down, Home Exercise > 30 min Daily, Sitting Time <3 hours/daily - Outcomes & Goals Outcomes/Goals: Demonstrates correct Warm-up/exercise Cool-Down (S3) if = 2.5 METs, Verbalizes symptoms of exercise intolerance by Session 3 (S3), Demonstrate safe equipment use (S3) & follows exercise prescrition (6) - Intervention & Plan Plan/Intervention: Instruct warm-up & cool-down if exercising at > 2 METs, Instruct on symptoms of exercise intolerance & actions to take, Instruct & monitor on saf, Assess intial functional capacity & safety risk - 30-day Reassessments 30 day Reassessments:: Progressing Nutrition - Initial Assessment Nutrition - 30-Day Assessment - Program Goals Nutrition Program Goals: LDL <100 optimal. 100 - 129 Near optimal. 130 - 159 Borderline High. 160 - 189 High. Total Cholesterol <200 desirable. 200 - 239 Borderline High. >/= 240 High. HDL < 40 Low >/=60 High. Triglycerides <150 desirable. <199 optimal. VlDL 5 - 40. HgbA1C <7%. BMI <25 Patient has diagnosis of Hyperlipidemia (ICD E78)?: Yes - Visit Date of Assessment:: 09/15/21 Session #:: 11 - Cholesterol/Lipids Triglycerides (mg/dL): 160 Total Cholesterol (mg/dL): 217 LDL Cholesterol (mg/dL): 141 HDL Cholesterol (mg/dL): 44 Determine presence & major risk factors that modify LDL goal: Hypertension or hypertensive medication, Family history of premature CHD in Male < 55 years: female <65 yearsFa, Age men > 45 years; women >/= 55 years Outcomes/Goals: Pt IDs own risk factors & lifestyle modifications by Session 10, Verbalizes symptoms of angina & response by session 3., Pt independently manages Intervention/Plan: Instruct on personal lipid levels & lipid goals/NCEP guidelines, Instruct on cholesterol Referral to dietitian:: No - After speaking with patient she declined Nutritional Services 30-day Reassessments:: Progressing - Diabetes (Other Core Measures) Diabetes Type: Not Applicable - Weight Mgt (Other Care) Not Applicable: No Height: 5 ft 4 in Weight:: 231 lb 8 oz BMI: 39.7 Diagnosis Overweight/Obesity BMI> 30% ICD-10 E66: Yes Diagnosis High BMI/Morbid Obesity BMI> 35% ICD-10 Z68: Yes Outcomes/Goals: Pt sets, maintains & shows weight loss goal & trend during rehab Intervention/Plan: Instruct on ideal BMI & set weight loss goal w/patient, Assist pt to ID & incorporate diet changes for weight loss by S9, Encourage goal of using 250-300dcal per session for weight loss 30 day Reassessments:: Progressing - Healthy Eating Habits Will attend diet classes:: Yes Outcomes/Goals:: Consume diet rich in vegs,fruits,whole grain/high fiber,fish,lean meat, Limit sat/trans fats,cholesterol & added salts & sugars Intervention/Plan:: Assess current eating habits 30-day Reassessments:: Progressing - Education Gave educational materials for:: Healthy eating Nutrition - 60-Day Assessment Nutrition - 90-Day Assessment Nutrition - Final Assessment Medical - Initial Assessment Medical- 30-Day Assessment - Visit Date of Eval: 09/15/21 Session #:: 11 - Medication Compliance Preventative Medication(s):: Aspirin, Ticagrelor/P2Y12 inhibitor, Statin/lipid, Beta wang H/O mental health issues: depression, anxiety, or addiction?: No Doesn?t believe in the benefits of treatment?: No Believes medications are unnecessary or harmful?: No Has a concern about medication side effects?: No Expresses concern over the cost of medications?: No Outcomes/Goals: Verbalizes medications,desired effect & common side effects @ DC, Pt self-reports following medication regimen, Keeps card in wallet w/medications listed by DC Interventions/plans: Instruct on medication effects & side effects, Review medication list w/patient every two weeks, Instruct importance of taking meds as ordered & assist problem solving 30-day Reassessments:: Progressing - Tobacco Use Tobacco Use: Non-smoker - Hypertension Hypertension Diagnosis:: Hypertension ICD-10 I10 Resting Blood Pressure:: 122/80 [place] [employer] Hypertension Guidelines: [place] [employer] Hypertension Guidelines. Normal BP Less than 120/80. Elevated BP 120/80. Hypertension Stage 1: BP 130-139/80-89. Hypertesnion Stage 2: BP 140 or higher/90 or higher. Hypertension Crisis: BP higher than 180/120 Peak Exercise Blood Pressure:: 142/68 Outcomes/Goals: Able to verbalize/achieve optimal blood pressure <130/80, Incorporates diet changes & exercise for blood pressure control by DC Interventions/plan: Instruct on optimal blood pressure, hypertension & medications, Instruct on effects of sodium, alcohol, stress, exercise &hypertension 30 day Reassessments:: Progressing - Tobacco Cessation Referral Smoking Cessation Referral:: No Individual Education/Counseling:: No Education Schedule Given:: Yes Medical- 60-Day Assessment Medical- 90-Day Assessment Medical - Final Assessment Psychosocial - Initial Assess Psychosocial - 30-Day Assess - VIsit Date of Eval: 09/15/21 Session #:: 11 Not Applicable: Yes History of previous Mental disease:: No - Psychosocial Test Tool Used:: PHQ-9 Questionnaire phq-9 Severity: Severity. 1-4 Minimal Depression. 5-9 Mild Depression. 10-14 Moderate Depression. 15-19 Moderately Sever Depression. 20-27 Severe Depression. Rule: - Referral to Behavioral Health PS - Interventions: Yes Attend Stress Management Classes, No Referral to Behavioral Health if PHQ-9 score >9:, No Referral to [facility], No Referral to Physician if PHQ-9 if score is 5-9: - Outcomes/Goals: See list Psychosocial Outcomes/Goals:: ID's personal stressors & 2 strategies to manage stress by discharge - Intervention/Plan: See List Interventions/Plan:: Assess stressors,coping strategies & signs of derpression on admission, Instruct/assist pt to develop coping & personal stress Mgt strategies, Instruct patient to recognize signs & symptoms of depression, Instruct patient to recog - 30-day Reassessments: 30 day Reassessments:: Progressing Psychosocial - 60-Day Assess Psychosocial - 90-Day Assess Psychosocial - Final Assessmen Patient Health Questionnaire 30-Day Re-eval Assessment 1. Little interest or pleasure in doing things: Several days 2. Feeling down, depressed, or hopeless: Not at all 3. Trouble falling or staying asleep, or sleeping too much: Not at all 4. Feeling tired or having little energy: Several days 5. Poor appetite or overeating: Not at all 6. Feeling bad about yourself -- or that you are a failure or have let yourself or your family down: Not at all 7. Trouble concentrating on things, such as reading the newspaper or watching television: Not at all 8. Moving or speaking so slowly that other people could have noticed. Or the opposite - being so fidgety or restless that you have been moving around a lot more than usual: Not at all 9. Thoughts that you would be better off , or of hurting yourself in some way: Not at all How difficult have these problems made it for you to do your work, take care of things at home, or get along with other people?: Not difficult at all Total Score: 2 Self-Efficacy 30-Day Re-eval Assessment We would like to know how confident you are in doing certain activities. Please select your confidence level for:: Select your confidence level for the following using the scale 1-10 where 1 is not at all confident and 10 is totally confident. Your score is the average of all 6 responses. Fatigue: How confident are you that you can keep the fatigue caused by your disease from interfering with the things you want to do? Select Number: 10 Physical Discomfort or Pain: How confident are you that you can keep the physical discomfort or pain of your disease from interfering with the things you want to do? Select Number: 10 Emotional Distress: How confident are you that you can keep the emotional distress caused by your disease from interfering with the things you want to do? Select Number: 10 Other Symptoms or Health Problems: How confident are you that you can keep other symptoms or health problems from interfering with the things you want to do? Select Number: 10 Different Tasks and Activities: How confident are you that you can do the different tasks and activities needed to manage your health condition so as to reduce your need to see a doctor? Select Number: 10 Medication: How confident are you that you can do things other than just taking medication to reduce how much your illness affects your everyday life? Select Number: 10 Total Score:: 10 Nutrition Survey
[2021-09-15 07:25] VITALS: BP 122/80; BP 142/68; BMI 39.7
== END 2021-09-26 23:59 ==
LOC: CR 08:00
PROVIDERS: PCP Family Medicine; Referring Provider Internal Medicine Cardiovascular Disease; Visit Provider Internal Medicine Cardiovascular Disease
DX: I25.2 Old myocardial infarction (principal); I10 Essential (primary) hypertension; Z95.5 Presence of coronary angioplasty implant and graft
CPT/HCPCS: 93798

== ENCOUNTER 2021-10-25 08:00 | Outpatient (RCR) | payer MEDICARE, BC, SELFPAY ==
[2021-09-15 07:25] VITALS: BMI 39.7
[2021-09-27 00:29] VITALS: BP 122/80; BP 142/68
--- NOTE | 2021-10-04 09:02 | PCM.CR.ITP ---
Diagnosis Exercise - 60-day Assessment - Visit Date of Eval: 10/04/21 Session #:: 20 - Physician Prescribed Exercise Modalities: Treadmill, Biodyne - Replaced with the SurflyFit Lateral Flowers Salesperson, NuStep Frequency: 3x/week for 12 weeks [36 sessions] Intensity: 60-80% of age predicted maximum heart rate reserve Current METSs:: 5.0 increased from 3.5 Target Heart Rate:: 101-132 Current RPE:: 12-13 Maximum Excercise HR:: 114 Resting Blood Pressure: 128/84 Maximum Exercise Blood Pressure: 200/88 EKG Type: NSR to sinus tach with rare PAC and PVC - Outcomes & Goals Goals:: Verbalizes understanding of THR, RPE & goal METS by session 6, Documents in home exercise log/reports 30 min aerobic 5 day/wk by DC, Demonstrates accurate pulse taking by DC - Intervention & Plan Exercise Program Goals: Instruct on personal THR & RPE, Instruct on MET level & personal MET goal, Show patient to take own pulse /validate performance until accurate, Instruct on home exercise - 30-day Reassessments 30 day Reassessments:: Progressing - Physical Activity Home Exercise Physical Activity - Home Exercise: Safe Exercise, Warm-up, Self-monitoring, Cool-Down, Home Exercise > 30 min Daily, Sitting Time <3 hours/daily - Outcomes & Goals Outcomes/Goals: Demonstrates correct Warm-up/exercise Cool-Down (S3) if = 2.5 METs, Verbalizes symptoms of exercise intolerance by Session 3 (S3), Demonstrate safe equipment use (S3) & follows exercise prescrition (6) - Intervention & Plan Plan/Intervention: Instruct warm-up & cool-down if exercising at > 2 METs, Instruct on symptoms of exercise intolerance & actions to take, Instruct & monitor on saf, Assess intial functional capacity & safety risk - 30-day Reassessments 30 day Reassessments:: Progressing Nutrition - Initial Assessment Nutrition - 30-Day Assessment Nutrition - 60-Day Assessment - Program Goals Nutrition Program Goals: LDL <100 optimal. 100 - 129 Near optimal. 130 - 159 Borderline High. 160 - 189 High. Total Cholesterol <200 desirable. 200 - 239 Borderline High. >/= 240 High. HDL < 40 Low >/=60 High. Triglycerides <150 desirable. <199 optimal. VlDL 5 - 40. HgbA1C <7%. BMI <25 Patient has diagnosis of Hyperlipidemia (ICD E78)?: Yes - Visit Date of Assessment:: 10/04/21 Session #:: 20 - Cholesterol/Lipids Triglycerides (mg/dL): 160 - 03/05/2021 Total Cholesterol (mg/dL): 217 LDL Cholesterol (mg/dL): 141 HDL Cholesterol (mg/dL): 44 Determine presence & major risk factors that modify LDL goal: Hypertension or hypertensive medication, Family history of premature CHD in Male < 55 years: female <65 yearsFa, Age men > 45 years; women >/= 55 years Outcomes/Goals: Pt IDs own risk factors & lifestyle modifications by Session 10, Verbalizes symptoms of angina & response by session 3., Pt independently manages Intervention/Plan: Instruct on personal lipid levels & lipid goals/NCEP guidelines, Instruct on cholesterol Referral to dietitian:: Yes - Medical Nutrition Therapy 30-day Reassessments:: Progressing - Diabetes (Other Core Measures) Diabetes Type: Not Applicable - Weight Mgt (Other Care) Not Applicable: No Height: 5 ft 4 in Weight:: 233 lb - no change in weight. Patient at risk of DM with weight. Also large contributing risk factor associated with her coronary history BMI: 39.9 Diagnosis Overweight/Obesity BMI> 30% ICD-10 E66: Yes Diagnosis High BMI/Morbid Obesity BMI> 35% ICD-10 Z68: Yes Outcomes/Goals: Pt sets, maintains & shows weight loss goal & trend during rehab Intervention/Plan: Instruct on ideal BMI & set weight loss goal w/patient, Assist pt to ID & incorporate diet changes for weight loss by S9, Refer to Structured Weight Loss program as appropriate, Encourage goal of using 250-300dcal per session for weight loss 30 day Reassessments:: Not Met - Healthy Eating Habits Will attend diet classes:: Yes Outcomes/Goals:: Consume diet rich in vegs,fruits,whole grain/high fiber,fish,lean meat, Limit sat/trans fats,cholesterol & added salts & sugars Intervention/Plan:: Assess current eating habits 30-day Reassessments:: Not Met - Education Gave educational materials for:: Healthy eating Nutrition - 90-Day Assessment Nutrition - Final Assessment Medical - Initial Assessment Medical- 30-Day Assessment Medical- 60-Day Assessment - Visit Date of Eval: 10/04/21 Session #:: 20 - Medication Compliance Preventative Medication(s):: Aspirin, Ticagrelor/P2Y12 inhibitor, Statin/lipid, Beta wang H/O mental health issues: depression, anxiety, or addiction?: No Doesn?t believe in the benefits of treatment?: No Believes medications are unnecessary or harmful?: No Has a concern about medication side effects?: No Expresses concern over the cost of medications?: No Outcomes/Goals: Verbalizes medications,desired effect & common side effects @ DC, Pt self-reports following medication regimen, Keeps card in wallet w/medications listed by DC Interventions/plans: Instruct on medication effects & side effects, Review medication list w/patient every two weeks, Instruct importance of taking meds as ordered & assist problem solving 30-day Reassessments:: Progressing - Tobacco Use Tobacco Use: Non-smoker - Hypertension Hypertension Diagnosis:: Hypertension ICD-10 I10 Resting Blood Pressure:: 128/84 [place] [employer] Hypertension Guidelines: [place] [employer] Hypertension Guidelines. Normal BP Less than 120/80. Elevated BP 120/80. Hypertension Stage 1: BP 130-139/80-89. Hypertesnion Stage 2: BP 140 or higher/90 or higher. Hypertension Crisis: BP higher than 180/120 Peak Exercise Blood Pressure:: 184/44 Outcomes/Goals: Able to verbalize/achieve optimal blood pressure <130/80, Incorporates diet changes & exercise for blood pressure control by DC Interventions/plan: Instruct on optimal blood pressure, hypertension & medications, Instruct on effects of sodium, alcohol, stress, exercise &hypertension 30 day Reassessments:: Progressing - Tobacco Cessation Referral Smoking Cessation Referral:: No Individual Education/Counseling:: No Education Schedule Given:: Yes Medical- 90-Day Assessment Medical - Final Assessment Psychosocial - Initial Assess Psychosocial - 30-Day Assess Psychosocial - 60-Day Assess - VIsit Date of Eval: 10/04/21 Session #:: 20 Not Applicable: Yes History of previous Mental disease:: No - Psychosocial Test Tool Used:: PHQ-9 Questionnaire phq-9 Severity: Severity. 1-4 Minimal Depression. 5-9 Mild Depression. 10-14 Moderate Depression. 15-19 Moderately Sever Depression. 20-27 Severe Depression. Rule: - Referral to Behavioral Health PS - Interventions: Yes Attend Stress Management Classes, No Referral to Behavioral Health if PHQ-9 score >9:, No Referral to [facility], No Referral to Physician if PHQ-9 if score is 5-9: - Outcomes/Goals: See list Psychosocial Outcomes/Goals:: ID's personal stressors & 2 strategies to manage stress by discharge - Intervention/Plan: See List Interventions/Plan:: Assess stressors,coping strategies & signs of derpression on admission, Instruct/assist pt to develop coping & personal stress Mgt strategies, Instruct patient to recognize signs & symptoms of depression, Instruct patient to recog - 30-day Reassessments: 30 day Reassessments:: Progressing Psychosocial - 90-Day Assess Psychosocial - Final Assessmen Patient Health Questionnaire 60-Day Re-eval Assessment 1. Little interest or pleasure in doing things: Several days 2. Feeling down, depressed, or hopeless: Not at all 3. Trouble falling or staying asleep, or sleeping too much: Not at all 4. Feeling tired or having little energy: Several days 5. Poor appetite or overeating: Not at all 6. Feeling bad about yourself -- or that you are a failure or have let yourself or your family down: Not at all 7. Trouble concentrating on things, such as reading the newspaper or watching television: Not at all 8. Moving or speaking so slowly that other people could have noticed. Or the opposite - being so fidgety or restless that you have been moving around a lot more than usual: Not at all 9. Thoughts that you would be better off , or of hurting yourself in some way: Not at all How difficult have these problems made it for you to do your work, take care of things at home, or get along with other people?: Not difficult at all Total Score: 2 Self-Efficacy 60-Day Re-eval Assessment We would like to know how confident you are in doing certain activities. Please select your confidence level for:: Select your confidence level for the following using the scale 1-10 where 1 is not at all confident and 10 is totally confident. Your score is the average of all 6 responses. Fatigue: How confident are you that you can keep the fatigue caused by your disease from interfering with the things you want to do? Select Number: 10 Physical Discomfort or Pain: How confident are you that you can keep the physical discomfort or pain of your disease from interfering with the things you want to do? Select Number: 10 Emotional Distress: How confident are you that you can keep the emotional distress caused by your disease from interfering with the things you want to do? Select Number: 10 Other Symptoms or Health Problems: How confident are you that you can keep other symptoms or health problems from interfering with the things you want to do? Select Number: 10 Different Tasks and Activities: How confident are you that you can do the different tasks and activities needed to manage your health condition so as to reduce your need to see a doctor? Select Number: 10 Medication: How confident are you that you can do things other than just taking medication to reduce how much your illness affects your everyday life? Select Number: 10 Total Score:: 10 Nutrition Survey
[2021-10-04 09:15] VITALS: BP 128/84; BP 184/44; BMI 39.9
== END 2021-10-26 23:59 ==
LOC: CR 08:00
PROVIDERS: PCP Family Medicine; Referring Provider Internal Medicine Cardiovascular Disease; Visit Provider Internal Medicine Cardiovascular Disease
DX: I25.2 Old myocardial infarction (principal); I10 Essential (primary) hypertension; Z95.5 Presence of coronary angioplasty implant and graft
CPT/HCPCS: 93798

== ENCOUNTER 2021-11-12 08:00 | Outpatient (RCR) | payer MEDICARE, BC, SELFPAY ==
[2021-10-04 09:15] VITALS: BMI 39.9
[2021-10-27 00:32] VITALS: BP 128/84; BP 184/44
--- NOTE | 2021-11-01 10:39 | CR.ITP_ITS ---
Diagnosis Exercise - 90-day Assessment - Visit Date of Eval: 11/01/21 Session #:: 30 - Physician Prescribed Exercise Modalities: Treadmill, Biodyne - lateral aed trainer, NuStep Intensity: 60-80% of age predicted maximum heart rate reserve Current METSs:: 6.5 Target Heart Rate:: 101-132 Current RPE:: 11-12 Maximum Excercise HR:: 120 Resting Blood Pressure: 130/70 Maximum Exercise Blood Pressure: 168/84 EKG Type: NSR to ST with rare PVC and PAC - Outcomes & Goals Goals:: Verbalizes understanding of THR, RPE & goal METS by session 6, Documents in home exercise log/reports 30 min aerobic 5 day/wk by DC, Demonstrates accurate pulse taking by DC, Other additional outcome/goals: see below - Intervention & Plan Exercise Program Goals: Instruct on personal THR & RPE, Instruct on MET level & personal MET goal, Show patient to take own pulse /validate performance until accurate, Instruct on home exercise, Other additional plan/int - 30-day Reassessments 30 day Reassessments:: Progressing - Physical Activity Home Exercise Physical Activity - Home Exercise: Safe Exercise, Warm-up, Self-monitoring, Cool-Down, Home Exercise > 30 min Daily, Sitting Time <3 hours/daily - Outcomes & Goals Outcomes/Goals: Demonstrates correct Warm-up/exercise Cool-Down (S3) if = 2.5 METs, Verbalizes symptoms of exercise intolerance by Session 3 (S3), Demonstrate safe equipment use (S3) & follows exercise prescrition (6), Other: See below - Intervention & Plan Plan/Intervention: Instruct warm-up & cool-down if exercising at > 2 METs, Instruct on symptoms of exercise intolerance & actions to take, Instruct & monitor on saf, Assess intial functional capacity & safety risk, Other See below - 30-day Reassessments 30 day Reassessments:: Progressing Nutrition - Initial Assessment Nutrition - 30-Day Assessment Nutrition - 60-Day Assessment Nutrition - 90-Day Assessment - Program Goals Nutrition Program Goals: LDL <100 optimal. 100 - 129 Near optimal. 130 - 159 Borderline High. 160 - 189 High. Total Cholesterol <200 desirable. 200 - 239 Borderline High. >/= 240 High. HDL < 40 Low >/=60 High. Triglycerides <150 desirable. <199 optimal. VlDL 5 - 40. HgbA1C <7%. BMI <25 Patient has diagnosis of Hyperlipidemia (ICD E78)?: Yes - Visit Date of Assessment:: 11/01/21 Session #:: 30 - Cholesterol/Lipids Determine presence & major risk factors that modify LDL goal: Hypertension or hypertensive medication, Low HDL cholesterol <40 mg/dL*, Family history of premature CHD in Male < 55 years: female <65 yearsFa, Age men > 45 years; women >/= 55 years Outcomes/Goals: Pt IDs own risk factors & lifestyle modifications by Session 10, Verbalizes symptoms of angina & response by session 3., Pt independently manages, Other Additional Outcomes/Goals: Intervention/Plan: Advocate for lipid panel cholesterol medication if applicable, Instruct on personal lipid levels & lipid goals/NCEP guidelines, Instruct on cholesterol, Other additional plan/int Referral to dietitian:: No 30-day Reassessments:: Progressing - Diabetes (Other Core Measures) Diabetes Type: Not Applicable - Weight Mgt (Other Care) Height: 5 ft 4 in Weight:: 106.141 kg BMI: 40.1 Diagnosis Overweight/Obesity BMI> 30% ICD-10 E66: Yes Diagnosis High BMI/Morbid Obesity BMI> 35% ICD-10 Z68: Yes Outcomes/Goals: Pt sets, maintains & shows weight loss goal & trend during rehab, Other additional outcomes/goals Intervention/Plan: Instruct on ideal BMI & set weight loss goal w/patient, Assist pt to ID & incorporate diet changes for weight loss by S9, Refer to Structured Weight Loss program as appropriate, Encourage goal of using 250- 300dcal per session for weight loss, Other additional plan/interventions 30 day Reassessments:: Progressing - Healthy Eating Habits Will attend diet classes:: Yes Outcomes/Goals:: Consume diet rich in vegs,fruits,whole grain/high fiber,fish,lean meat, Limit sat/trans fats,cholesterol & added salts & sugars, Other additional outcome/goals: Intervention/Plan:: Assess current eating habits, Other Additional plan/interventions 30-day Reassessments:: Progressing - Education Gave educational materials for:: Signs & symptoms of hypoglycemia, Signs & symptoms of hyperglycemia, Relate diabetes to coronary artery disease, Healthy eating Nutrition - Final Assessment Medical - Initial Assessment Medical- 30-Day Assessment Medical- 60-Day Assessment Medical- 90-Day Assessment - Visit Date of Eval: 11/01/21 Session #:: 30 - Medication Compliance Preventative Medication(s):: Aspirin, Ticagrelor/P2Y12 inhibitor, Statin/lipid, Beta wang H/O mental health issues: depression, anxiety, or addiction?: No Doesn?t believe in the benefits of treatment?: No Believes medications are unnecessary or harmful?: No Has a concern about medication side effects?: No Expresses concern over the cost of medications?: No Outcomes/Goals: Verbalizes medications,desired effect & common side effects @ DC, Pt self-reports following medication regimen, Keeps card in wallet w/medications listed by DC, Other additional outcome/goals: Interventions/plans: Instruct on medication effects & side effects, Review medication list w/patient every two weeks, Instruct importance of taking meds as ordered & assist problem solving, Other additional 30-day Reassessments:: Progressing - Tobacco Use Tobacco Use: Non-smoker Do you use smokeless tobacco?: No - Hypertension Hypertension Diagnosis:: Hypertension ICD-10 I10 Resting Blood Pressure:: 130/70 [place] [employer] Hypertension Guidelines: [place] [employer] Hypertension Guidelines. Normal BP Less than 120/80. Elevated BP 120/80. Hypertension Stage 1: BP 130-139/80-89. Hypertesnion Stage 2: BP 140 or higher/90 or higher. Hypertension Crisis: BP higher than 180/120 Peak Exercise Blood Pressure:: 168/84 Outcomes/Goals: Able to verbalize/achieve optimal blood pressure <130/80, Incorporates diet changes & exercise for blood pressure control by DC, Other additional outcomes/goals Interventions/plan: Instruct on optimal blood pressure, hypertension & medications, Instruct on effects of sodium, alcohol, stress, exercise &hypertension, Other additional plan/interventions 30 day Reassessments:: Progressing - Tobacco Cessation Referral Smoking Cessation Referral:: No Individual Education/Counseling:: No Education Schedule Given:: Yes Medical - Final Assessment Psychosocial - Initial Assess Psychosocial - 30-Day Assess Psychosocial - 60-Day Assess Psychosocial - 90-Day Assess - VIsit Date of Eval: 11/01/21 Session #:: 30 History of previous Mental disease:: No - Outcomes/Goals: See list Psychosocial Outcomes/Goals:: ID's personal stressors & 2 strategies to manage stress by discharge, Other Additional outcome/goals: - Intervention/Plan: See List Interventions/Plan:: Assess stressors,coping strategies & signs of derpression on admission, Instruct/assist pt to develop coping & personal stress Mgt strategies, Refer to Behavioral Health if appropriate, Refer to Physician if appropriate, Instruct patient to recognize signs & symptoms of depression, Instruct patient to recog, Other additional plan/intervention - 30-day Reassessments: 30 day Reassessments:: Progressing Psychosocial - Final Assessmen Patient Health Questionnaire 90-Day Re-eval Assessment 1. Little interest or pleasure in doing things: Several days 2. Feeling down, depressed, or hopeless: Not at all 3. Trouble falling or staying asleep, or sleeping too much: Not at all 4. Feeling tired or having little energy: Several days 5. Poor appetite or overeating: Not at all 6. Feeling bad about yourself -- or that you are a failure or have let yourself or your family down: Not at all 7. Trouble concentrating on things, such as reading the newspaper or watching television: Not at all 8. Moving or speaking so slowly that other people could have noticed. Or the opposite - being so fidgety or restless that you have been moving around a lot more than usual: Not at all 9. Thoughts that you would be better off , or of hurting yourself in some way: Not at all How difficult have these problems made it for you to do your work, take care of things at home, or get along with other people?: Not difficult at all Total Score: 2 Self-Efficacy 90-Day Re-eval Assessment We would like to know how confident you are in doing certain activities. Please select your confidence level for:: Select your confidence level for the following using the scale 1-10 where 1 is not at all confident and 10 is totally confident. Your score is the average of all 6 responses. Fatigue: How confident are you that you can keep the fatigue caused by your disease from interfering with the things you want to do? Select Number: 10 Physical Discomfort or Pain: How confident are you that you can keep the physical discomfort or pain of your disease from interfering with the things you want to do? Select Number: 10 Emotional Distress: How confident are you that you can keep the emotional distress caused by your disease from interfering with the things you want to do? Select Number: 10 Other Symptoms or Health Problems: How confident are you that you can keep other symptoms or health problems from interfering with the things you want to do? Select Number: 10 Different Tasks and Activities: How confident are you that you can do the different tasks and activities needed to manage your health condition so as to reduce your need to see a doctor? Select Number: 10 Medication: How confident are you that you can do things other than just taking medication to reduce how much your illness affects your everyday life? Select Number: 10 Total Score:: 10 Nutrition Survey
[2021-11-01 10:49] VITALS: BP 130/70; BP 168/84; BMI 40.1
--- NOTE | 2021-12-06 13:00 | CR.ITP_ITS ---
Diagnosis - General Information Admitting Diagnosis: STEMI, PCI w/coronary stenting Secondary Diagnosis: HLD, HTN, Obesity Personal Learning Style:: Audio/Visual, Written Barriers to Learning: Vision Impairment - only readers Stage of change r/t lifestyle modifications:: Action Gave educational material for:: Treating Heart Disease, Emotions & Heart Disease, Stress Management & Relaxation, Sleep Disorders & Heart Disease, How The Heart Works, What it means to have Heart Disease, How Coronary Artery Disease is Diagnosed, Heart Procedures, What Heart Medications Do, Risk Factors & Modifications, Living an Active Life, Nutrition - Education/Goals Individual Counseling: Initial Assessment: Abnormal Cholesterol Levels - no supporting post data, High Blood Pressure - Pre Program 134/82 Post program 120/78, Overweight/Obesity - Pre 237 Post 225, 30-Day Assessment: High Blood Pressure, Overweight/Obesity, 60-Day Assessment: Overweight/Obesity, Discharge Assessment: Overweight/Obesity Cardiac Rehabilitation Goals: 1. Maintain the individual as the primary focus of care. 2. To improve the patient's quality of life. 3. Identification of cardiac risk factors and provide cardiac risk factor management. 4. Enhance the psychosocial status of the patient. 5. Reconditioning enough to allow the patient to resume customary activities. 6. Control symptoms of cardiac disease Personal Goals: Initial Assessment: Improve energy level - 5, Improve muscle strength and endurance - 5, Improve diet and eating habits (eat healthier) - 5 - Nutrition Services WH[facility] Weight adn Medical Nutrition Therapy Consult, Control risk factors (learn risk factor modification) - 4 Scale for measuring improvement of personal goals: Enter appropriate number in Comments. 2 = Unchanged. 3 = Slightly Better. 4 = Moderate Improvement. 5 = Met my Goal - Diagnosis & Disease Process Outcomes/Goals: Pt IDs own risk factors & lifestyle modifications by Session 10, Verbalizes symptoms of angina & response by session 3., Pt independently manages Comment:: Patient actively participated using online educational resources during the course of her cardiac rehab program. Plan/Interventions: Assist Pt to ID & engage in lifestyle modification to reduce CVD risk, Instruct on individual risk factors, Review symptoms of angina & emergency actions, Review secondary diagnosis & identify educational needs. Comment:: Patient was able to verbalize actions to reduce her risk factors. She is active and exercises at home. 30 day Reassessments:: Progressing 30 day Reassessments:: Progressing 30 day Reassessments:: Met 30 day Reassessments:: Met - Safety Referral to Physical Therapy: No Referral to [facility] Case Management: No Fall Risk Assessed:: Yes Assistive Devices:: None - Liz was a iveth to have in the cardiac rehab program. In doing her phone follow-up 30-day discharge, Liz reports her story will be featured in our community newsletter! She continues to exercise daily, and walks her dog regularly. She has continued her diet teaching and continues to lose. Exercise - Final/Discharge - Visit Date of Eval: 12/06/21 - 30-day post program follow-up - Outcomes & Goals Goals:: Verbalizes understanding of THR, RPE & goal METS by session 6, Documents in home exercise log/reports 30 min aerobic 5 day/wk by DC - Liz is continuing home exercise, and walks the dog regularly. She monitors her pulse before during and after exercise and reports her HR is staying in her THHR. - Intervention & Plan Exercise Program Goals: Instruct on personal THR & RPE, Instruct on MET level & personal MET goal, Show patient to take own pulse /validate performance until accurate, Instruct on home exercise - 30-day Reassessments 30 day Reassessments:: Met Reassessment Notes & Comments:: See note above. - Physical Activity Home Exercise Physical Activity - Home Exercise: Safe Exercise, Warm-up, Self-monitoring, Cool-Down, Home Exercise > 30 min Daily, Sitting Time <3 hours/daily - Outcomes & Goals Outcomes/Goals: Demonstrates correct Warm-up/exercise Cool-Down (S3) if = 2.5 METs, Verbalizes symptoms of exercise intolerance by Session 3 (S3), Demonstrate safe equipment use (S3) & follows exercise prescrition (6) - Intervention & Plan Plan/Intervention: Instruct warm-up & cool-down if exercising at > 2 METs, Instruct on symptoms of exercise intolerance & actions to take, Instruct & monitor on saf, Assess intial functional capacity & safety risk - 30-day Reassessments 30 day Reassessments:: Met Nutrition - Initial Assessment Nutrition - 30-Day Assessment Nutrition - 60-Day Assessment Nutrition - 90-Day Assessment Nutrition - Final Assessment - Program Goals Nutrition Program Goals: LDL <100 optimal. 100 - 129 Near optimal. 130 - 159 Borderline High. 160 - 189 High. Total Cholesterol <200 desirable. 200 - 239 Borderline High. >/= 240 High. HDL < 40 Low >/=60 High. Triglycerides <150 desirable. <199 optimal. VlDL 5 - 40. HgbA1C <7%. BMI <25 Patient has diagnosis of Hyperlipidemia (ICD E78)?: Yes - Visit Date of Assessment:: 12/06/21 - 30-day discharge follow-up - Cholesterol/Lipids Triglycerides (mg/dL): 0 - no recent labs drawn since starting CR. Determine presence & major risk factors that modify LDL goal: Hypertension or hypertensive medication, Family history of premature CHD in Male < 55 years: female <65 yearsFa, Age men > 45 years; women >/= 55 years Outcomes/Goals: Pt IDs own risk factors & lifestyle modifications by Session 10, Verbalizes symptoms of angina & response by session 3., Pt independently manages Intervention/Plan: Instruct on personal lipid levels & lipid goals/NCEP guidelines, Instruct on cholesterol 30-day Reassessments:: Met Reassessment Notes & Comments:: Liz has continued to follow her Cardiac Diet and guidelines for weight lass program goals. She reports doing better with food selections and reports continuation to lose weight about 2-5 pounds a week. - Weight Mgt (Other Care) Not Applicable: No Height: 5 ft 4 in Weight:: 225 lb - Initial weight 237, Discharge was 235, currently at 225! BMI: 38.6 Diagnosis Overweight/Obesity BMI> 30% ICD-10 E66: Yes Diagnosis High BMI/Morbid Obesity BMI> 35% ICD-10 Z68: Yes Outcomes/Goals: Pt sets, maintains & shows weight loss goal & trend during rehab Intervention/Plan: Instruct on ideal BMI & set weight loss goal w/patient 30 day Reassessments:: Progressing - Healthy Eating Habits Will attend diet classes:: Yes Outcomes/Goals:: Consume diet rich in vegs,fruits,whole grain/high fiber,fi sh,lean meat, Limit sat/trans fats,cholesterol & added salts & sugars 30-day Reassessments:: Progressing - Education Gave educational materials for:: Healthy eating Medical - Initial Assessment Medical- 30-Day Assessment Medical- 60-Day Assessment Medical- 90-Day Assessment Medical - Final Assessment - Visit Date of Eval: 12/06/21 - 30-day discharge follow-up - Medication Compliance Preventative Medication(s):: Aspirin, Clopidogrel/P2Y12 inhibit, Statin/lipid, Beta wang H/O mental health issues: depression, anxiety, or addiction?: No Doesn?t believe in the benefits of treatment?: No Believes medications are unnecessary or harmful?: No Has a concern about medication side effects?: No Expresses concern over the cost of medications?: No Outcomes/Goals: Verbalizes medications,desired effect & common side effects @ DC, Pt self-reports following medication regimen, Keeps card in wallet w/medications listed by DC Comments:: Patient compliant with medications and follow a regular routine. Interventions/plans: Instruct on medication effects & side effects, Review medication list w/patient every two weeks, Instruct importance of taking meds as ordered & assist problem solving 30-day Reassessments:: Met - Tobacco Use Tobacco Use: Non-smoker - Hypertension Hypertension Diagnosis:: Hypertension ICD-10 I10 Resting Blood Pressure:: 134/82 - Patient reports her home BPs are checked daily and are 124/82 [place] [employer] Hypertension Guidelines: [place] [employer] Hypertension Guidelines. Normal BP Less than 120/80. Elevated BP 120/80. H ypertension Stage 1: BP 130-139/80-89. Hypertesnion Stage 2: BP 140 or higher/90 or higher. Hypertension Crisis: BP higher than 180/120 Outcomes/Goals: Able to verbalize/achieve optimal blood pressure <130/80, Incorporates diet changes & exercise for blood pressure control by DC Interventions/plan: Instruct on optimal blood pressure, hypertension & medications, Instruct on effects of sodium, alcohol, stress, exercise &hypertension 30 day Reassessments:: Met Reassessment Notes & Comments:: Routinely checks BPs and weight daily at home. - Tobacco Cessation Referral Smoking Cessation Referral:: No Individual Education/Counseling:: No Education Schedule Given:: Yes Psychosocial - Initial Assess Psychosocial - 30-Day Assess Psychosocial - 60-Day Assess Psychosocial - 90-Day Assess Psychosocial - Final Assessmen - VIsit Date of Eval: 12/06/21 - 30-day discharge follow-up Not Applicable: Yes History of previous Mental disease:: No - Psychosocial Test Tool Used:: PHQ-9 Questionnaire phq-9 Severity: Severity. 1-4 Minimal Depression. 5-9 Mild Depression. 10-14 Moderate Depression. 15-19 Moderately Sever Depression. 20-27 Severe Depression. Rule: - Referral to Behavioral Health PS - Interventions: Yes Attend Stress Management Classes, No Referral to Behavioral Health if PHQ-9 score >9:, No Referral to [facility] Community Care [facility], No Referral to Physician if PHQ-9 if score is 5-9: - Outcomes/Goals: See list Psychosocial Outcomes/Goals:: ID's personal stressors & 2 strategies to manage stress by discharge - Intervention/Plan: See List Interventions/Plan:: Assess stressors,coping strategies & signs of derpression on admission, Instruct/assist pt to develop coping & personal stress Mgt strategies, Instruct patient to recognize signs & symptoms of depression, Instruct patient to recog - 30-day Reassessments: 30 day Reassessments:: Met Lulu Hill has a very positive attitude and joyful to be around. Patient Health Questionnaire Discharge Assessment 1. Little interest or pleasure in doing things: Not at all 2. Feeling down, depressed, or hopeless: Not at all 3. Trouble falling or staying asleep, or sleeping too much: Not at all 4. Feeling tired or having little energy: Not at all 5. Poor appetite or overeating: Not at all 6. Feeling bad about yourself -- or that you are a failure or have let yourself or your family down: Not at all 7. Trouble concentrating on things, such as reading the newspaper or watching television: Not at all 8. Moving or speaking so slowly that other people could have noticed. Or the opposite - being so fidgety or restless that you have been moving around a lot more than usual: Not at all 9. Thoughts that you would be better off , or of hurting yourself in some way: Not at all How difficult have these problems made it for you to do your work, take care of things at home, or get along with other people?: Not difficult at all Total Score: 0 FRANCISCA-Q SV Test - Statements CAD is a disease of the arteries in the heart: False Examples of risk factors for heart disease: True Angina is chest pain or discomfort: True The benefits of resistance training include: True Eating more meat and dairy products: False Anti-platelet medications such as aspirin are important: True The only effective way to manage stress: False An exercise warm-up slowly increases heart rate: True Prepared, processed foods usually have high sodium: True Depression is common after a heart attack: True The statin medications lower cholesterol: True To control blood pressure, lower the amount of sodium: True If someone gets chest discomfort during walking: False Transfats are partially hydrogenated vegetable oils: True Sleep apnea that is not treated increases the risk: False To control cholesterol, one should become a vegetarian: False Someone knows if he/she is exercising at the right level: True Diabetes cannot be prevented with exercise & health eating: False Stress is a large risk for heart attack: True A diet that can help lower blood pressure is rich in: True - Total Score Total Correct Responses: 20 Self-Efficacy Discharge Assessment We would like to know how confident you are in doing certain activities. Please select your confidence level for:: Select your confidence level for the following using the scale 1-10 where 1 is not at all confident and 10 is totally confident. Your score is the average of all 6 responses. Fatigue: How confident are you that you can keep the fatigue caused by your disease from interfering with the things you want to do? Select Number: 10 Physical Discomfort or Pain: How confident are you that you can keep the physical discomfort or pain of your disease from interfering with the things you want to do? Select Number: 10 Emotional Distress: How confident are you that you can keep the emotional distress caused by your disease from interfering with the things you want to do? Select Number: 10 Other Symptoms or Health Problems: How confident are you that you can keep other symptoms or health problems from interfering with the things you want to do? Select Number: 10 Different Tasks and Activities: How confident are you that you can do the different tasks and activities needed to manage your health condition so as to reduce your need to see a doctor? Select Number: 10 Medication: How confident are you that you can do things other than just taking medication to reduce how much your illness affects your everyday life? Select Number: 10 Total Score:: 10 Nutrition Survey - Nutrition Survey Discharge Have you lost >10 lbs over the past 2 months without trying?: No - Following Cardiac Diet - low fat, low cholesterol and no added salt. I have also cut back on snacking, and watching my calories and portion sizes. I am still losing weight about 2-5 pounds per week. Are you following a special diet at home for diabetes, low fat, or low salt?: Yes Are you interested in meeting with a dietitian for help understanding your diet?: No Do you eat less than 3 meals a day?: No Do you eat fatty meats (barone, sausage, ribs, etc), fried foods, desserts, large amounts of salad dressings, margarine, butter, or cheese most days?: No Do you have food allergies? [Enter types in comment field]: No Do you eat in restaurants more than 3 times a week?: No Do you season food with salt, seasoning salt, or garlic salt?: No Do you used canned, boxed, frozen meals, or soups, seasoning packets?: No Total Score:: 1
[2021-12-06 13:37] VITALS: BP 134/82; BMI 38.6
== END 2021-11-26 23:59 ==
LOC: CR 08:00
PROVIDERS: PCP Family Medicine; Referring Provider Internal Medicine Cardiovascular Disease; Visit Provider Internal Medicine Cardiovascular Disease
DX: I25.2 Old myocardial infarction (principal); I10 Essential (primary) hypertension; Z95.5 Presence of coronary angioplasty implant and graft
CPT/HCPCS: 93798

== ENCOUNTER → 2022-03-23 | Outpatient (CLI) | payer MEDICARE, BC, SELFPAY ==
[2022-03-07 13:09] VITALS: BMI 40.1
--- NOTE | 2022-03-23 07:02 | ECHOL_ITS ---
Reason For Study: eval Function Procedure This was a limited 2D transthoracic echocardiogram. Limited views were obtained. Exam performed in department. Left Ventricle Segmental dysfunction with preserved ejection fraction (see wall motion). The estimated ejection fraction is 55 %. Septal [place] Valle : Hypokinetic. Right Ventricle Normal systolic function. Atria The left atrium is mildly enlarged. Normal right atrium. Mitral Valve There is no mitral annular calcification. Normal mitral valve. Tricuspid Valve Normal tricuspid valve. Aortic Valve Trisinus/trileaflet aortic valve. Normal aortic valve. Pulmonic Valve The pulmonic valve is not well visualized. Pericardium/Pleural No pericardial effusion. MMode/2D Measurements & Calculations LVIDd: 4.5 cm IVSd: 1.1 cm Ao root diam: 3.3 cm LVIDs: 2.8 cm LVPWd: 1.3 cm RVDd: 2.6 cm FS: 38.2 % LAV(MOD-sp4): 29.6 ml LVAd ap4: 22.5 cm2 LVAd ap2: 21.5 cm2 LVLd ap4: 7.4 cm LVLd ap2: 6.0 cm EDV(MOD-sp4): 57.5 ml EDV(MOD-sp2): 63.3 ml EDV(sp4-el): 58.1 ml EDV(sp2-el): 65.4 ml LVAs ap4: 13.6 cm2 LVAs ap2: 14.9 cm2 LVLs ap4: 5.9 cm LVLs ap2: 6.2 cm ESV(MOD-sp4): 26.5 ml ESV(MOD-sp2): 30.5 ml ESV(sp4-el): 26.6 ml ESV(sp2-el): 30.5 ml EF(MOD-sp4): 53.8 % EF(MOD-sp2): 51.7 % EF(sp4-el): 54.3 % SV(MOD-sp4): 30.9 ml SV(MOD-sp2): 32.7 ml SV(sp4-el): 31.6 ml LA dimension(2D): 4.3 cm LA A4 area: 13.8 cm2 RA A4 area: 9.8 cm2 ECHO/Echo, Limited Study Interpretation Summary Limited views were obtained. Segmental dysfunction with preserved ejection fraction (see wall motion). The estimated ejection fraction is 55 %. The left atrium is mildly enlarged. Ordering Physician: Michael Hall Referring Physician: Michael Hall Performed By: ADELSO
[2022-03-23 07:42] LABS: ALB/GLOB Ratio 0.9 RATIO (0.9-2.4); AST(SGOT) 13 U/L (15-37); Alanine Aminotransfer ALT/SGPT 27 U/L (13-56); Albumin, Serum 3.4 g/dL (3.2-5.0); Alkaline Phosphatase 104 U/L (45-117); Anion Gap 4 (5-15); BUN 17 mg/dL (7-18); BUN/Creat Ratio 19.3 RATIO (10-20); Bilirubin, Direct 0.09 mg/dL (0.00-0.30); Calcium,Total 8.7 mg/dL (8.5-10.1); Chloride 106 mmol/L (98-107); Cholesterol 145 mg/dL (200); Creatinine, Serum 0.88 mg/dL (0.55-1.02); EST Glomerular Filtration Rate 68 mL/min (>60); Est Glom Filt Rate - Afr Amer 83 mL/min (>60); Free T3 1.8 pg/mL (2.18-3.98); Globulin 3.6 g/dL (2.2-4.2); Glucose 117 mg/dL (74-106); High Density Lipoprotein 47 mg/dL; Sodium Level 142 mmol/L (136-145); T4 Free Direct 1.21 ng/dL (0.76-1.46); Thyroid Stim Hormone (TSH) 0.44 uIU/mL (0.358-3.74); Triglycerides 95 mg/dL; Very Low Density Lipoprotein 19 mg/dL (5-40)
== END | disposition home or self-care (01) ==
LOC: CVS 06:50
PROVIDERS: Nurse Practitioner Gerontology; PCP Family Medicine; Referring Provider Nurse Practitioner Family; Visit Provider Nurse Practitioner Family
DX: I25.10 Atherosclerotic heart disease of native coronary artery without angina pectoris (principal); E03.9 Hypothyroidism, unspecified
CPT/HCPCS: 36415; 80053; 80061; 82248; 84439; 84443; 84481; 93308

== ENCOUNTER → 2022-07-20 | Outpatient (CLI) | payer MEDICARE, BC, SELFPAY ==
[2022-03-07 13:09] VITALS: BMI 40.1
--- NOTE | 2022-07-20 09:56 | RAD_ITS ---
STUDY: X-RAY - LUMBAR SPINE REASON FOR EXAM: Female, 67 years old. LOW BACK PAIN TECHNIQUE: 4 view(s) of the lumbar spine were obtained. COMPARISON: None FINDINGS: Normal lumbar lordosis. There is no substantial scoliosis. There is a normal alignment of the vertebrae. There is multilevel endplate spondylosis of the lumbar vertebrae. There is multi-level degenerative disc disease with multi-level disc space narrowing. There is no demonstrated fracture. There is atherosclerotic calcification of the abdominal aorta without a demonstrated aneurysm. RAD/L/S Spine Min 4 Views IMPRESSION: Degenerative changes of the spine, as detailed above. Electronically Signed: Franco Salazar MD at 11:17 EDT ,
== END | disposition home or self-care (01) ==
LOC: MTRAD 09:55
PROVIDERS: PCP Family Medicine; Referring Provider Family Medicine; Visit Provider Family Medicine
DX: M54.50 Low back pain, unspecified (principal)
CPT/HCPCS: 72110

== ENCOUNTER 2022-08-22 09:00 | Outpatient (RCR) | payer MEDICARE, BC, SELFPAY ==
[2022-03-07 13:09] VITALS: BMI 40.1
--- NOTE | 2022-07-25 15:12 | HP.PTEVAL_ITS ---
Patient's Visit Information THERESA DICKENS is a 67 year old F referred to Physical Therapy by Dr. Kris Goff MD with a diagnosis of LBP. Date of Evaluation: 07/25/22 Physical Therapist: APOORVA Rico - Visit Plan Frequency: 3x /Week Duration: 6 Weeks Plan: 3X/ week for 6 weeks for B (R >L) piriformis stretching, SLUMP nerve root stretching, Neutral spine core stability, LE strengthening, with HEP. HEP: LAQ and seated B piriformis stretching - Subjective Pt has had LBP off and on for awhile now (since Dec) and no it is not going away. She is managing it better She had an MR Sept of last year and try naprosen for a little but. The back pain did not go away and at night the back pain is the worst. She sleeps maybe 4-5 hours and can not get comfortable. She is on meds but the pain is dull. She has pain in her Lumbar spine and pain in the back of the legs. She always has achy pain down B legs with the R leg worse than the L. If she is standing or walking but the front part of her R thigh goes numb and tingling. She had an X-ray of the back and they said it was just arthritis...DDD. She can walk about 1-1.5 miles and she will have pain and even her toes will bother her and R thigh pain. She has pain sitting as well and constant pain. She feels that sitting is better for her pain franklin. When she first gets up she hurts but it gets better from there.... moving around eases the pain. - Pain back pain Pain Intensity (Out of 10): 3 R leg pain Pain Intensity (Out of 10): 3 L leg pain Pain Intensity (Out of 10): 2 - Objective Gait: Walks with normal gait pattern. Pt is able to walk on heels and toes but has increase weakness on the R. Trunk AROM: Flex 75% (increase pain), Ext 50% (no pain), SB R 75% (increase pain) and SB L 75% Rot B 75%. LE MMT: R hip flex 9.3# and L hip flex 12.9#, R knee ext 14.3# and 13.8#, R knee flex 7.4# and L knee flex 7.5#, hip abd R 4-/5 and L 4+/5. Bridges: increase pain with the first one but after X 5 she felt a little less painful. Patellar DTR:2+/3 B. +SLR on the R for R side back pain and -SLR on the L. Tight B piriformis but worse on the R compared to the L and R pinpoints where pt is having a lot of her pain. stretched manual supine piriformis B by therapist 30 sec X 3 and then instructed pt in sitting piriformis stretch in chair. Also LAQ to stretch nerve root. - Balance/Special Test Scores Oswestry Low Back Score: 17 - Goals Goal 1:: I HEP Goal Time Frame: 4-6 Weeks Goal 2:: Decrease R LE pain to 1/10 with walking Goal Time Frame: 4-6 Weeks Goal 3:: Decrease LBP to 1/10 with walking Goal Time Frame: 4-6 Weeks Goal 4:: Increase R LE strength (at time of eval: R hip flex 9.3# and L hip flex 12.9#, R knee ext 14.3# and 13.8#, R knee flex 7.4# and L knee flex 7.5#, hip abd R 4-/5 and L 4+/5) Goal Time Frame: 4-6 Weeks Goal 5:: -SLR on the R Goal Time Frame: 4-6 Weeks - Rehabilitation Potential Rehabilitation Potential: Good - Anticipated Interventions Patient/Client Instruction: Educate patient on: Condition, Plan of Care For the Purpose of:: To decrease pain, To increase ROM, To improve nutrient delivery to tissue, To improve muscle performance and motor function, To improve ability to perform ADL's, To increase tolerance to activity/condition/position, To improve performance and independence with ADL's, To decrease level of supervision to perform tasks, To improve ability of physical actions for home/community/work/leisure, To improve gait and locomotor functions, To improve health of tissue, To decrease soft tissue restriction, To increase flexibility/ROM, To improve balance Therapeutic Exercise to Include: Strength training, Body mechanics, Postural training, Flexibilty training, Gait and locomotor training, Neuromotor development, Passive ROM, Active ROM, Dynamic Lumbar Stabilization For the Purpose of:: To decrease pain, To increase ROM, To improve nutrient delivery to tissue, To increase oxygenation perfusion, To improve muscle performance and motor function, To improve ability to perform ADL's, To increase tolerance to activity/condition/position, To improve performance and independence with ADL's, To decrease level of supervision to perform tasks, To improve ability of physical actions for home/community/work/leisure, To improve gait and locomotor functions, To improve health of tissue, To decrease soft tissue restriction, To increase flexibility/ROM IF ES: Yes Cryotherapy (ice pack, ice massage): Yes Thermo therapy (hot pack): Yes Ultrasound (thermal/non thermal): Yes For the Purpose of:: To decrease pain, To decrease swelling/inflammation, To increase ROM, To improve nutrient delivery to tissue Thank you for the opportunity to evaluate your patient. For Medicare and Medicare HMO plans, please review the plan of care and approve it. It will need to be FAXED BACK to us at [phone] for Medicare purposes. For Medicare only, by signing this I certify the plan of care. Please let me know if there are questions or concerns regarding this plan of care. Physician Signature: Dat e:
--- NOTE | 2022-08-22 09:58 | HP.PTDCSUM ---
It has been my pleasure to treat THERESA DICKENS referred by Dr. Kris Goff MD, with the diagnosis of LBP for a total of 13 visit(s). Discharge Date: 08/22/22 Please see the following information for a summary of their discharge status. Subjective: Pt is off the meloxicam and she feels that she is getting around a lot better than what she was. The last couple of nights she woke up a lot and the pain will be in her hips or she will wake up with cramps in her HS and calfs. She drinks lots of water cause she gets up twice a night to go pee. SHe is stretching at home... not everything but she does do things on a regular basis. She does not sit still very long at home. Pt wants to continue at home for awhile. back pain Pain Intensity (Out of 10): 0 R leg pain Pain Intensity (Out of 10): 3 L leg pain Pain Intensity (Out of 10): 3 % Improvement: 90 Objective/Function: R LE strength: R hip flex 9.4# and L hip flex 12.9#,. R knee ext 17# and 13.9#,. R knee flex 7.4# and L knee flex 10.1#,. hip abd R 8.7# and L 10.4). R SLR test - (neg). L SLR test - (neg) Goal 1:: I HEP Goal Progress: Goal Met Goal 2:: Decrease R LE pain to 1/10 with walking Goal Progress: Goal Met Goal 3:: Decrease LBP to 1/10 with walking Goal Progress: Goal Met Goal 4:: Increase R LE strength (at time of eval: R hip flex 9.3# and L hip flex 12.9#, R knee ext 14.3# and 13.8#, R knee flex 7.4# and L knee flex 7.5#, hip abd R 4-/5 and L 4+/5) Goal Progress: Goal Met Goal 5:: -SLR on the R Goal Progress: Goal Met Plan: DC PT to HEP. Pt will ask Dr if a side affect of her heart medication and the leg cramping. Discharge Comments: DC PT to HEP If there are questions or concerns regarding this patient's physical therapy, please feel free to call me at [phone]. Thank you for the referral of this patient. Sincerely, Claribel Fiore, MPT Balance/Gait/Functional tests - Balance/Special Test Scores Oswestry Low Back Score: 14
== END 2022-08-22 10:16 | disposition home or self-care (01) ==
LOC: PT 09:00
PROVIDERS: PCP Family Medicine; Referring Provider Family Medicine; Visit Provider Family Medicine
DX: M54.50 Low back pain, unspecified (principal)
CPT/HCPCS: 97110; 97161; 97530

== ENCOUNTER → 2022-09-06 | Outpatient (CLI) | payer MEDICARE, BC, SELFPAY ==
[2022-03-07 13:09] VITALS: BMI 40.1
[2022-09-06 10:41] LABS: ALB/GLOB Ratio 0.9 RATIO (0.9-2.4); AST(SGOT) 12 U/L (15-37); Alanine Aminotransfer ALT/SGPT 26 U/L (13-56); Albumin, Serum 3.3 g/dL (3.2-5.0); Alkaline Phosphatase 116 U/L (45-117); Anion Gap 4 (5-15); BUN 13 mg/dL (7-18); BUN/Creat Ratio 14.2 RATIO (10-20); Bilirubin, Direct 0.16 mg/dL (0.00-0.30); Calcium,Total 8.8 mg/dL (8.5-10.1); Chloride 108 mmol/L (98-107); Cholesterol 140 mg/dL (200); Creatinine, Serum 0.91 mg/dL (0.55-1.02); EST Glomerular Filtration Rate 65 mL/min (>60); Est Glom Filt Rate - Afr Amer 79 mL/min (>60); Free T3 2.8 pg/mL (2.18-3.98); Globulin 3.5 g/dL (2.2-4.2); Glucose 119 mg/dL (74-106); High Density Lipoprotein 43 mg/dL; Protein, Total 6.8 g/dL (6.4-8.2); Sodium Level 140 mmol/L (136-145); Thyroid Stim Hormone (TSH) 0.36 uIU/mL (0.358-3.74); Triglycerides 107 mg/dL; Very Low Density Lipoprotein 21 mg/dL (5-40)
== END | disposition home or self-care (01) ==
PROVIDERS: PCP Family Medicine; Referring Provider Family Medicine; Visit Provider Family Medicine
DX: E03.9 Hypothyroidism, unspecified (principal); I10 Essential (primary) hypertension; E78.00 Pure hypercholesterolemia, unspecified
CPT/HCPCS: 36415; 80053; 80061; 82248; 84439; 84443; 84481

== ENCOUNTER → 2023-03-16 | Outpatient (CLI) | payer MEDICARE, BC, SELFPAY ==
[2022-03-07 13:09] VITALS: BMI 40.1
--- NOTE | 2023-03-16 08:47 | RAD_ITS ---
STUDY: X-RAY - RIGHT KNEE REASON FOR EXAM: Female, 68 years old. Pain and swelling after falling 5 days ago on a slippery floor. TECHNIQUE: 4 view(s) of the knee. COMPARISON: None. FINDINGS: Normal visualized distal femur. Normal visualized proximal tibia and fibula. Normal proximal tibiofibular articulation. There is no acute fracture, dislocation or destructive osseous pathology. 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 There is mild degenerative arthrosis of the lateral femorotibial compartment. Normal patellofemoral articulation. There is a soft tissue prominence in the suprapatellar region suggesting a small volume joint effusion. The soft tissue structures are unremarkable. 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 Electronically Signed: Noah Silva DO at 16:50 EDT Reading Location ID and State: [id number] Tel [phone], Service support ,
== END | disposition home or self-care (01) ==
LOC: MTRAD 08:46
PROVIDERS: PCP Family Medicine; Referring Provider Family Medicine; Visit Provider Family Medicine
DX: M25.561 Pain in right knee (principal)
CPT/HCPCS: 73564

== ENCOUNTER → 2023-03-20 | Outpatient (CLI) | payer MEDICARE, BC, SELFPAY ==
[2022-03-07 13:09] VITALS: BMI 40.1
[2023-03-20 10:14] LABS: Anion Gap 2 (5-15); BUN 16 mg/dL (7-18); BUN/Creat Ratio 15.8 RATIO (10-20); Calcium,Total 9.1 mg/dL (8.5-10.1); Chloride 108 mmol/L (98-107); Creatinine, Serum 1.01 mg/dL (0.55-1.02); EST Glomerular Filtration Rate 58 mL/min (>60); Est Glom Filt Rate - Afr Amer 70 mL/min (>60); Free T3 2.3 pg/mL (2.18-3.98); Glucose 126 mg/dL (74-106); Potassium 3.9 mmol/L (3.5-5.1); Sodium Level 138 mmol/L (136-145); T4 Free Direct 1.64 ng/dL (0.76-1.46); Thyroid Stim Hormone (TSH) 1.48 uIU/mL (0.358-3.74)
== END | disposition home or self-care (01) ==
LOC: MFPLAB 08:32
PROVIDERS: PCP Family Medicine; Visit Provider Family Medicine
DX: I10 Essential (primary) hypertension (principal); E03.9 Hypothyroidism, unspecified
CPT/HCPCS: 36415; 80048; 84439; 84443; 84481

== ENCOUNTER → 2023-05-18 | Outpatient (CLI) | payer MEDICARE, BC, SELFPAY ==
[2022-03-07 13:09] VITALS: BMI 40.1
--- NOTE | 2023-05-18 10:34 | STRESSREP ---
Stress Test Report Date: 05/18/2023 Procedure: Exercise tolerance test/imaging study Indications: Arrhythmia Consent: Per the patient Procedure: The patient exercised on a Campbell protocol for 4 minutes and 1 second achieving a peak heart rate of 134 bpm (87% predicted maximal heart rate) with a peak blood pressure 204/90 mmHg and a peak MET capacity of 7.0 METs. The baseline ECG demonstrated normal sinus rhythm. The peak exercise ECG demonstrated no ischemic changes. Rare PVC was noted. The functional capacity was considered suboptimal. There was no complaint of chest discomfort during exercise or recovery. The examination was discontinued secondary to dyspnea and target heart rate being achieved. The patient was injected with 14.6 mCi of technetium 99m Cardiolite and subsequently rest SPECT Cardiolite nuclear imaging was obtained in the horizontal long, vertical long, and short axis views. Post-exercise, the patient was injected with 44.7 mCi of technetium 99m Cardiolite and subsequently stress SPECT Cardiolite nuclear imaging was obtained in the horizontal long, vertical long, and short axis views. A gated Cardiolite study at peak stress was obtained. Rest and stress SPECT Cardiolite nuclear imaging status post realignment, normalization, and attenuation correction, demonstrates mildly reduced perfusion of the anterior wall post stress. There is end systolic thickening and brightening. The gated Cardiolite study demonstrates myocardial thickening and inward wall motion. The reported LVEF is 69%. Impression: 1. Technically adequate (percent predicted maximal heart rate greater than 85%) exercise tolerance test 2. Peak exercise ECG with no ischemic changes 3. Rare PVC noted 4. Rest and stress SPECT Cardiolite nuclear imaging demonstrate mildly reduced perfusion of the anterior wall post stress, suggesting mild ischemia. 5. The gated Cardiolite study reports an LVEF of 69%. This note was generated with [employer] software. It may contain incorrect words, spelling, and punctuation that were not noted in checking the note before signing.
== END | disposition home or self-care (01) ==
PROVIDERS: PCP Family Medicine; Referring Provider Internal Medicine Cardiovascular Disease; Visit Provider Internal Medicine Cardiovascular Disease
DX: I25.10 Atherosclerotic heart disease of native coronary artery without angina pectoris (principal)
CPT/HCPCS: 78452; 93017; A9500; A4216

== ENCOUNTER → 2023-10-17 | Outpatient (CLI) | payer MEDICARE, BC, SELFPAY ==
[2022-03-07 13:09] VITALS: BMI 40.1
[2023-10-17 11:01] LABS: AST(SGOT) 13 U/L (15-37); Alanine Aminotransfer ALT/SGPT 25 U/L (13-56); Albumin, Serum 3.5 g/dL (3.2-5.0); Alkaline Phosphatase 110 U/L (45-117); Anion Gap 3 (5-15); BUN 14 mg/dL (7-18); BUN/Creat Ratio 13.7 RATIO (10-20); Calcium,Total 8.9 mg/dL (8.5-10.1); Chloride 106 mmol/L (98-107); Cholesterol 232 mg/dL (200); Creatinine, Serum 1.02 mg/dL (0.55-1.02); EST Glomerular Filtration Rate 57 mL/min (>60); Est Glom Filt Rate - Afr Amer 69 mL/min (>60); Free T3 2.6 pg/mL (2.18-3.98); Globulin 3.5 g/dL (2.2-4.2); Glucose 112 mg/dL (74-106); High Density Lipoprotein 46 mg/dL; Potassium 4.3 mmol/L (3.5-5.1); Sodium Level 139 mmol/L (136-145); T4 Free Direct 1.38 ng/dL (0.76-1.46); Thyroid Stim Hormone (TSH) 1.22 uIU/mL (0.358-3.74); Triglycerides 154 mg/dL; Very Low Density Lipoprotein 31 mg/dL (5-40)
--- NOTE | 2023-10-17 11:57 | BI_ITS ---
MAMMOGRAPHY - BILATERAL SCREENING REASON FOR EXAM: Female, 68 years old. Routine annual screening examination. PERTINENT HISTORY: Non-contributory. TECHNIQUE: Digital bilateral breast venancio (3D mammographic acquisition) in the CC and MLO projections. 2-D mediolateral oblique (MLO) and craniocaudad (CC) views of both breasts were obtained. CAD: Full Field Digital Mammography with Computer Added Detection was performed. COMPARISON: Comparison is made with prior study dated January 16, 2018 and January 18, 2017. FINDINGS: Breast Composition: There are scattered areas of fibroglandular density. There are no dominant masses or suspicious calcifications. Stable small bilateral axillary lymph nodes. No other significant abnormalities are identified. There has been no significant change since the prior study. BI/SCRN MAMM (CAD)W/VENANCIO BILAT IMPRESSION: Stable bilateral screening mammogram. Yearly follow-up mammogram recommended. (A) ASSESSMENT CATEGORY: BIRADS Category 2: Benign. A letter regarding these results will be sent to the patient by the facility within 30 days. Approximately 10% of breast cancers are not detected by mammography. A normal mammogram should not delay biopsy of a clinically suspicious abnormality. [id number] Electronically Signed: Shaggy Triana MD at 13:13 EST ,
== END | disposition home or self-care (01) ==
LOC: OPBI 11:57
PROVIDERS: PCP Family Medicine; Referring Provider Family Medicine; Visit Provider Family Medicine
DX: Z00.00 Encounter for general adult medical examination without abnormal findings (principal); Z12.31 Encounter for screening mammogram for malignant neoplasm of breast; E03.9 Hypothyroidism, unspecified
CPT/HCPCS: 36415; 77063; 77067; 80053; 80061; 84439; 84443; 84481